=== PATIENT | female | born 1995 | race Caucasian/White ===

== ENCOUNTER 2023-07-23 17:07 | Emergency (ER) | payer OTHER, SELFPAY ==
[2023-07-23 17:11] VITALS: BP 145/81
[2023-07-23] MEDS: ZOFRAN ODT (ORALLY DISINTEGRATING) 4 MG PO (17:17)
[2023-07-23] MEDS: TYLENOL 1000 MG PO (17:28)
[2023-07-23 17:51] LABS: COVID-19 Antigen Positive (Negative)
[2023-07-23 17:53] LABS: HCG, Serum Qualitative Screen Negative
[2023-07-23 17:54] LABS: % Basophils 0.9 % (0-2); % Immature Granulocytes 0.5 % (0-0.5); % Lymphocytes 9.6 % (20.5-51.1); % Monocytes 4.6 % (1.7-9.3); % Neutrophils 82.4 % (42.2-75.2); Absolute Basophils 0.1 10^3/uL (0-0.2); Absolute Eosinophils 0.2 10^3/uL (0-0.7); Absolute Lymphocytes 0.7 10^3/uL (1.2-3.4); Absolute Monocytes 0.4 10^3/uL (0.1-0.6); Absolute Neutrophils 6.2 10^3/uL (1.4-6.5); Hematocrit 36.2 % (37.0-47.0); Hemoglobin 12.1 g/dL (12.0-16.0); Mean Corp Hgb Conc. 33.4 g/dL (33.0-37.0); Mean Corpuscular Hgb 29.4 pg (27.0-31.0); Mean Corpuscular Volume 87.9 fL (81.0-99.0); Mean Platelet Volume 13.9 fL (7.4-10.4); Nucleated Red Blood Cells % 0 %; Platelet Count 173 10^3/uL (130-400); Red Blood Cell Count 4.12 10^6/uL (4.20-5.40); Red Cell Dist. Width 14.6 % (11.5-14.5); White Blood Cell Count 7.6 10^3/uL (4.8-10.8)
[2023-07-23 17:57] LABS: ALT (SGPT) 161 U/L (0-35); AST (SGOT) 379 U/L (14-36); Albumin 4.6 g/dl (3.5-5.0); Alkaline Phosphatase 138 U/L (38-126); Blood Urea Nitrogen 8 mg/dl (7-17); Calcium 10.1 mg/dl (8.4-10.2); Carbon Dioxide 24 mmol/L (22-30); Chloride 99 mmol/L (98-107); Glucose 123 mg/dl (70-99); Potassium 4.2 mmol/L (3.5-5.1); Sodium 134 mmol/L (135-145); Total Bilirubin 0.7 mg/dl (0.2-1.3); Total Protein 8.1 g/dl (6.3-8.2); eGFR > 60.00
[2023-07-23] MEDS: TORADOL 30 MG IV (18:39)
[2023-07-23] MEDS: ZOFRAN 4 MG IV (18:40)
[2023-07-23] MEDS: NSS 1000 IV (18:40)
[2023-07-23 18:44] VITALS: BP 119/69
[2023-07-23 18:47] VITALS: BMI 39.6
--- NOTE | 2023-07-23 19:37 | ED.GENMED ---
History of Present Illness
General
Chief Complaint: Abdominal Symptoms
Source: patient
Time Seen by Provider: 07/23/23 18:21
Travel History
Have you had any contact with someone who has COVID-19?: No
Do you have any symptoms of coronavirus? Fever > 100 degrees, chills, cough, shortness of breath, sore throat, loss of taste or smell, muscle aches, or headache?: No
History of Present Illness
History of Present Illness:
27-year-old female presenting to the emergency department for evaluation of nausea, vomiting, decreased p.o. intake, diarrhea, nasal congestion, sore throat and cough. She also admits to a fever but unsure of her max temperature. No known sick
contacts, recent travel or recent antibiotics. Did not take anything for symptoms prior to arrival. She denies any other concerns. Patient notes that she has not been vaccinated for COVID in the past nor has had previous COVID infection.
Past History
Past History
ED Past Medical History: HTN
ED Past Surgical History: None
Patient has exhibited threatening behavior?: No
Social History
Tobacco: Smoker
Alcohol: Occasional
Drug: None
Personal: Single
Living: with family
Employment: Employed
Review of Systems
Review of Systems
All Other Systems: ROS reviewed and negative except as documented in HPI and ROS
Phy Exam
Physical Exam
Physical Exam:
GENERAL: Alert , in no apparent distress
EYE: conjunctiva clear
Head: Normocephalic atraumatic
NECK: Supple,
ENT: mmm.
LUNGS: no acute respiratory distress
NEUROLOGICAL: Alert and oriented
SKIN: Warm and dry, skin intact.
MUSCULOSKELETAL: well perfused.
PSYCH: Normal and appropriate interaction.
Scores
Heart Failure Risk
Heart Failure Risk Score: Not Applicable
Heart Score for Chest Pain Patients
STEMI patient?: Not applicable
Withdrawal Assessment of Alcohol
Withdrawal Assessment Completed?: Not applicable
Course
Orders/Labs/Results
Orders:
Orders
07/23/23 17:15
Test Result ONCE
07/23/23 17:16
Ondansetron Orally Disint [Zofran Odt (Orally Disintegrating)] 4 mg .ROUTE .STK-MED ONE
Ondansetron Orally Disint [Zofran Odt (Orally Disintegrating)] 4 mg PO NOW STA
07/23/23 17:26
Acetaminophen [Tylenol] 1,000 mg .ROUTE .STK-MED ONE
07/23/23 17:27
Acetaminophen [Tylenol] 1,000 mg PO NOW STA
07/23/23 17:30
Complete Blood Count/With Diff Urgent
Comprehensive Metabolic Panel Urgent
HCG, Serum Qualitative Screen Urgent
07/23/23 17:31
COVID-19 Antigen Urgent
Source: Nasal Swab
Influenza A+B Rapid Molecular Urgent
DANIELLE Source: Nasal Swab
Specimen Description:
07/23/23 18:29
0.9% Sodium Chloride 1000 ml [Nss] 1,000 ml IV BOLUS
Ketorolac [Toradol] 30 mg IV NOW STA
Ondansetron Injectable [Zofran] 4 mg IV NOW STA
Abnormal Lab Results
07/23/23 07/23/23
17:30 17:31
RBC 4.12 L 10^6/uL
(4.20-5.40)
Hct 36.2 L %
(37.0-47.0)
RDW 14.6 H %
(11.5-14.5)
MPV 13.9 H fL
(7.4-10.4)
Absolute Lymphs (auto) 0.7 L 10^3/uL
(1.2-3.4)
Neutrophils % 82.4 H %
(42.2-75.2)
Lymphocytes % 9.6 L %
(20.5-51.1)
Sodium 134 L mmol/L
(135-145)
Glucose 123 H mg/dl
(70-99)
AST 379 H U/L
(14-36)
ALT 161 H U/L
(0-35)
Alkaline Phosphatase 138 H U/L
(38-126)
SARS-CoV-2 Antigen Positive A
(Negative)
07/23/23 17:30
07/23/23 17:30
Vital Signs
Initial and Last Documented VS:
Initial Vital Signs
Temp Pulse Resp BP Pulse Ox
101.5 F H 110 16 145/81 95
07/23/23 17:11 07/23/23 17:11 07/23/23 17:11 07/23/23 17:11 07/23/23 17:11
Last Documented Vital Signs
Temp Pulse Resp BP Pulse Ox
101.5 F H 96 16 119/69 98
07/23/23 18:44 07/23/23 18:44 07/23/23 18:44 07/23/23 18:44 07/23/23 18:44
MDM/Problems Addressed
Differential Diagnosis Includes:
COVID, flu, gastroenteritis
MDM/Problems Addressed:
27-year-old female presenting emergency department for evaluation of multiple URI-like symptoms combined with GI symptoms. Patient had labs, COVID and flu testing ordered while in triage and COVID test came back positive. Patient had a fever here
and was treated with Tylenol while in triage. Given her GI symptoms will treat with fluids, Zofran and Toradol. Patient will be dispositioned home following. We did discuss Paxlovid and patient noted she will think about if she wants the
medication or not.
*Pulse Oximetry
Patient hypoxic: no
*Critical Care Note
Total Time (30-74mins, 75-104mins- exclusive of procedures): Not Applicable
Patient Management
Escalation/DeEscalation of care consider admission/obs:
Patient feeling improved with medications. She is otherwise stable for discharge home. She was advised on her elevated liver function tests and to follow-up with her primary care physician over this. I suspect these were more elevated today based
off of her current COVID infection as well as her nausea and vomiting. Patient is aware of return precautions but otherwise stable for discharge home. Patient was provided with a prescription for Paxlovid but she states she is not sure she is at
this. Advise she needs to take this within the next 48 hours given her symptoms that been ongoing for the last 3 days. Also given a prescription for Zofran to use for her nausea/vomiting as needed.
ED Attending Note
-
Portions of this chart may have been created with voice recognition software.� Occasional wrong word or��sound alike� substitutions may have occurred due to the inherent limitations of voice recognition software.
Discharge Plan
Departure
Patient Disposition: Home (Routine Discharge)
Date of Disposition: 07/23/23
Time of Disposition: 19:39
Patient with high blood pressure during this ER visit?: Yes
Discharge Problem:
COVID-19, Elevated liver function tests
Instructions: COVID-19 ED
Prescriptions:
New
Paxlovid 300 mg (150 mg x 2)-100 mg tablets,dose pack
See Rx Instructions .ROUTE .COMPLEX Qty: 30 0RF
Rx Instructions:
take TWO 150 mg tablets of nirmatrelvir with ONE 100 mg tablet of ritonavir twice daily for 5 days
ondansetron 4 mg tablet,disintegrating
4 mg PO TIDPRN PRN (Reason: nausea/vomiting) Qty: 10 0RF
No Action
gabapentin 400 mg Capsule
200 mg PO TID
amlodipine 2.5 mg Tablet
2.5 mg PO DAILY
desvenlafaxine succinate [Pristiq] 50 mg Tablet Extended Release 24 Hr
50 mg PO DAILY
methylprednisolone [Medrol ([place])] 4 mg tablets,dose pack
See Rx Instructions .ROUTE .COMPLEX Qty: 21 0RF
Rx Instructions:
orally per package directions
cyclobenzaprine 10 mg tablet
10 mg PO Q8H PRN (Reason: muscle spasm) Qty: 10 0RF
ondansetron 4 mg Tablet,Disintegrating
4 mg PO TIDPRN PRN (Reason: nausea/vomiting) Qty: 12 0RF
ibuprofen 600 mg tablet
600 mg PO QID PRN (Reason: Pain) Qty: 30 0RF
ondansetron 4 mg tablet,disintegrating
4 mg PO TID PRN (Reason: nausea and vomiting) Qty: 12 0RF
Referrals:
Doe Echeverria, [Family Provider] -
Interventions
Interventions:
*Risk Screen - Suicide Last Done: 07/23/23 18:46
*General Assessment Last Done: 07/23/23 18:46
*Neglect/Abuse Screening Last Done: 07/23/23 18:46
ED- Fall Risk Assessment Last Done: 07/23/23 18:52
*ED COVID-19 Vaccine History Last Done: 07/23/23 17:11
*Nursing Disposition Last Done: 07/23/23 20:27
AK-Jebacp-Dsfsiwjhzx Assessment Last Done: 07/23/23 18:47
Discharge Date and Time
Print Language: CENTRAL AFRICAN
[2023-07-23 20:27] VITALS: BP 130/68
== END 2023-07-23 20:28 | disposition home or self-care (01) ==
LOC: EMR 17:07
PROVIDERS: EMERGENCY PHYSICIAN Emergency Medicine; FAMILY PHYSICIAN Family Medicine
DX: U07.1 COVID-19 (principal); I10 Essential (primary) hypertension; F17.200 Nicotine dependence, unspecified, uncomplicated; R79.89 Other specified abnormal findings of blood chemistry
CPT/HCPCS: 99284; 96374; 96375 ×2; 96361; 80053; 84703; 85025; 87502; 87811

== ENCOUNTER 2023-07-27 22:29 | Emergency (ER) | payer OTHER, SELFPAY ==
[2023-07-27 22:30] VITALS: BP 162/104
[2023-07-27 23:34] VITALS: BMI 38.9
[2023-07-27 23:41] VITALS: BP 102/61
[2023-07-27 23:47] LABS: % Basophils 0.6 % (0-2); % Eosinophils 2.6 % (0-6); % Immature Granulocytes 0.3 % (0-0.5); % Lymphocytes 35.9 % (20.5-51.1); % Monocytes 3.7 % (1.7-9.3); % Neutrophils 56.9 % (42.2-75.2); Absolute Basophils 0.1 10^3/uL (0-0.2); Absolute Eosinophils 0.2 10^3/uL (0-0.7); Absolute Lymphocytes 3.2 10^3/uL (1.2-3.4); Absolute Monocytes 0.3 10^3/uL (0.1-0.6); Hematocrit 35.9 % (37.0-47.0); Hemoglobin 12.2 g/dL (12.0-16.0); Mean Corpuscular Hgb 29.5 pg (27.0-31.0); Mean Corpuscular Volume 86.7 fL (81.0-99.0); Mean Platelet Volume 12.7 fL (7.4-10.4); Nucleated Red Blood Cells % 0 %; Platelet Count 174 10^3/uL (130-400); Red Blood Cell Count 4.14 10^6/uL (4.20-5.40); Red Cell Dist. Width 14.6 % (11.5-14.5); White Blood Cell Count 8.9 10^3/uL (4.8-10.8)
[2023-07-27] MEDS: DUONEB 3 ML INH (23:52)
[2023-07-27 23:57] LABS: ALT (SGPT) 122 U/L (0-35); AST (SGOT) 162 U/L (14-36); Albumin 4.3 g/dl (3.5-5.0); Alkaline Phosphatase 137 U/L (38-126); Blood Urea Nitrogen 7 mg/dl (7-17); Calcium 9.3 mg/dl (8.4-10.2); Carbon Dioxide 26 mmol/L (22-30); Chloride 103 mmol/L (98-107); Estimated Creatinine Clearance > 125 ml/min; Glucose 101 mg/dl (70-99); Sodium 137 mmol/L (135-145); Total Bilirubin 0.4 mg/dl (0.2-1.3); Total Protein 7.7 g/dl (6.3-8.2); eGFR > 60.00
[2023-07-28] VITALS: BP 113/76
[2023-07-28] LABS: D-Dimer 0.32 ug/mlFEU (0.00-0.50)
--- NOTE | 2023-07-28 00:01 | ED.GENMED ---
History of Present Illness
General
Chief Complaint: Breathing Problem
Source: patient
Exam Limitations: none
Time Seen by Provider: 07/27/23 23:05
Nursing documentation reviewed up to this point in time: agreed with
Travel History
Have you had any contact with someone who has COVID-19?: Yes
Comment: + COVID on Sunday
Do you have any symptoms of coronavirus? Fever > 100 degrees, chills, cough, shortness of breath, sore throat, loss of taste or smell, muscle aches, or headache?: Yes
Symptoms:: cough, SOB
History of Present Illness
History of Present Illness:
27-year-old female with a past medical history of hypertension who presents to the emergency department for evaluation of cough and shortness of breath. Patient notably had recent diagnosis of COVID. She says that she started feeling ill about a
week ago. She says she started with nausea and vomiting, diarrhea, sore throat and cough. She was seen in this ER 07/23/2023 (5 days ago) and was diagnosed with COVID. She was started on Paxlovid (she has 1 more day of the prescription) and was
given Zofran to use as needed for nausea. She says that her nausea, vomiting, diarrhea have all improved but she has had persistent sore throat and cough and over the past 48 hours has noticed increasing shortness of breath. She says shortness of
breath seems to be worse with lying flat. She decided to come to the emergency to be reassessed. She has not had any fevers. She denies any swelling or pain in the legs. She denies any chest pain associate with her shortness of breath. She
denies any other complaints today.
Past History
Past History
ED Past Medical History: HTN
ED Past Surgical History: None
Patient has exhibited threatening behavior?: No
Social History
Tobacco: Smoker
Alcohol: Occasional
Drug: None
Personal: Single
Living: with family
Employment: Employed
Review of Systems
Review of Systems
All Other Systems: ROS reviewed and negative except as documented in HPI and ROS
Constitutional: Denies fever or chills
EENT: Reports sore throat; Denies runny nose
Respiratory: Reports cough and trouble breathing
Cardiac: Denies chest pain or palpitations
ABD/GI: Denies abdominal pain, nausea, vomiting or diarrhea
: Denies flank pain
Musculoskeletal: Denies edema, neck pain or back pain
Skin: Denies rash
Neurological: Denies dizzy or headache
Phy Exam
Physical Exam
Physical Exam:
General: Awake, alert, oriented x3; no acute distress
Head: Normocephalic, atraumatic
Eyes: Conjunctiva normal
Throat: Airway intact, handling secretions; some slight erythema of the posterior oropharynx/tonsils but no tonsillar enlargement or exudate, midline uvula without deviation, no tongue elevation or swelling
Neck: Trachea midline, supple without meningismus
Lungs: Faint scattered wheezing; normal pulse ox on room air, normal respiratory rate, normal work of breathing
Heart: Regular rate and rhythm, no murmurs, gallops, or rubs
Abd: Soft, non distended, nontender
Neuro: Cranial nerves grossly intact, speech fluid
Skin: no rash
Extremities: No edema in extremities, equal pulses in all extremities
Scores
Heart Failure Risk
Heart Failure Risk Score: Not Applicable
Heart Score for Chest Pain Patients
STEMI patient?: Not applicable
Withdrawal Assessment of Alcohol
Withdrawal Assessment Completed?: Not applicable
Course
Orders/Labs/Results
Orders:
Orders
07/27/23 22:33
EKG [Electrocardiogram (*1)] Urgent
Reason for Study: Shortness of Breath
07/27/23 22:34
EKG- Treatment ONCE
07/27/23 23:06
Electrocardiogram (*1) Urgent
Reason for Study: Shortness of Breath
CR Chest - 2 Views Urgent
Comment:
Reason For Exam: sob
07/27/23 23:27
Complete Blood Count/With Diff Urgent
Comprehensive Metabolic Panel Urgent
D-Dimer Urgent
Troponin I Urgent
07/27/23 23:44
Ipratropium/Albuterol Sulfate [Duoneb] 3 ml INH R NOW STA
07/28/23 00:09
Azithromycin [Zithromax] 500 mg PO NOW STA
MethylPREDNISolone PF [Solu-Medrol Pf] 125 mg IV NOW STA
Abnormal Lab Results
07/27/23
23:27
RBC 4.14 L 10^6/uL
(4.20-5.40)
Hct 35.9 L %
(37.0-47.0)
RDW 14.6 H %
(11.5-14.5)
MPV 12.7 H fL
(7.4-10.4)
Creatinine 0.5 L mg/dL
(0.6-1.0)
Glucose 101 H mg/dl
(70-99)
AST 162 H U/L
(14-36)
ALT 122 H U/L
(0-35)
Alkaline Phosphatase 137 H U/L
(38-126)
07/27/23 23:27
07/27/23 23:27
Vital Signs
Initial and Last Documented VS:
Initial Vital Signs
Temp Pulse Resp BP Pulse Ox
36.7 C 93 16 162/104 98
07/27/23 22:30 07/27/23 22:30 07/27/23 22:30 07/27/23 22:30 07/27/23 22:30
Last Documented Vital Signs
Temp Pulse Resp BP Pulse Ox
36.7 C 79 16 113/76 97
07/27/23 22:30 07/28/23 00:00 07/28/23 00:00 07/28/23 00:00 07/28/23 00:00
MDM/Problems Addressed
Differential Diagnosis Includes:
Pneumonia, bronchitis, pulmonary embolism somewhat less likely, myocarditis/pericarditis less likely without chest pain
MDM/Problems Addressed:
27-year-old female presents for evaluation of persistent cough and now developing shortness of breath in the setting of known COVID infection. She is on Paxlovid and is almost completed her course. She was hypertensive in triage but blood pressure
normalized by my assessment; rest of vitals normal including a pulse ox of 98% on room air and respiratory rate of 14-16. Physical exam as above�notable for faint scattered wheezing and frequent coughing. Suspect likely bronchitis. Will plan to
check basic labs, chest x-ray to rule out pneumonia. Check an EKG. Will check d-dimer. Send troponin in an abundance of caution. Will treat with a DuoNeb. Reassess after the above.
Labs reviewed: CBC unremarkable, CMP shows mild elevation of transaminases likely in the setting of known viral illness no other clinically significant abnormalities. Troponin undetectable, D-dimer negative. Chest x-ray reviewed by me shows
questionable very faint right upper lung opacity but otherwise clear. Will cover with short course of antibiotics for questionable pneumonia on chest x-ray but by history and exam this seems more consistent with acute bronchitis in the setting of
viral infection. Will plan to treat with steroid and albuterol as needed at home. There is no clear indication for admission at this point she has no signs of sepsis, normal vital signs throughout her ED visit. Stable for discharge will have her
follow-up with her primary doctor as an outpatient. She feels comfortable with this plan. I did inform her that she needs repeat blood work to recheck LFTs as an outpatient and provided her a copy of these results. Spoke about return precautions
and all questions were answered.
Chronic conditions affecting care:
Obesity
Acute Exacerbation and/or Progression of Chronic Illness:
Acutely hypertensive resolved without intervention continue to monitor but no emergent antihypertensive is indicated at present
Acute Exacerbation and/or Progression of Chronic Illness: HTN
*Radiology
Radiology exam reviewed: preliminary read by ED provider
*Pulse Oximetry
Patient hypoxic: no
*EKG
Interpreted by ED Provider?: Yes
Heart Rate: 67
Rate: normal
Rhythm: sinus
[place]: normal axis
Interval: normal interval
QRS Pattern: normal QRS
Ischemia: other (Nonspecific T wave abnormalities)
*Critical Care Note
Total Time (30-74mins, 75-104mins- exclusive of procedures): Not Applicable
Data Reviewed
Source: patient and records
ED Attending Note
-
Portions of this chart may have been created with voice recognition software.� Occasional wrong word or��sound alike� substitutions may have occurred due to the inherent limitations of voice recognition software.
Discharge Plan
Departure
Patient Disposition: Home (Routine Discharge)
Date of Disposition: 07/28/23
Time of Disposition: 00:14
Patient with high blood pressure during this ER visit?: Yes
Discharge Problem:
Acute bronchitis, COVID-19
Instructions: Acute Bronchitis, Adult (DC), COVID-19 ED
Prescriptions:
New
azithromycin [Zithromax] 250 mg tablet
250 mg PO DAILY Qty: 4 0RF
albuterol sulfate 90 mcg/actuation HFA aerosol inhaler
2 puff inhalation Q6H PRN (Reason: shortness of breath or wheezing) Qty: 6.7 0RF
methylprednisolone [Medrol ([place])] 4 mg tablets,dose pack
See Rx Instructions .ROUTE .COMPLEX Qty: 21 0RF
Rx Instructions:
for 6 days
No Action
gabapentin 400 mg Capsule
200 mg PO TID
amlodipine 2.5 mg Tablet
2.5 mg PO DAILY
desvenlafaxine succinate [Pristiq] 50 mg Tablet Extended Release 24 Hr
50 mg PO DAILY
methylprednisolone [Medrol ([place])] 4 mg tablets,dose pack
See Rx Instructions .ROUTE .COMPLEX Qty: 21 0RF
Rx Instructions:
orally per package directions
cyclobenzaprine 10 mg tablet
10 mg PO Q8H PRN (Reason: muscle spasm) Qty: 10 0RF
ondansetron 4 mg Tablet,Disintegrating
4 mg PO TIDPRN PRN (Reason: nausea/vomiting) Qty: 12 0RF
ibuprofen 600 mg tablet
600 mg PO QID PRN (Reason: Pain) Qty: 30 0RF
ondansetron 4 mg tablet,disintegrating
4 mg PO TID PRN (Reason: nausea and vomiting) Qty: 12 0RF
Paxlovid 300 mg (150 mg x 2)-100 mg tablets,dose pack
See Rx Instructions .ROUTE .COMPLEX Qty: 30 0RF
Rx Instructions:
take TWO 150 mg tablets of nirmatrelvir with ONE 100 mg tablet of ritonavir twice daily for 5 days
ondansetron 4 mg tablet,disintegrating
4 mg PO TIDPRN PRN (Reason: nausea/vomiting) Qty: 10 0RF
Referrals:
Doe Echeverria DO [Family Provider] - Call in 1-3 days for appt
Activity Restrictions/Additional Instructions:
Thank you for visiting the Emergency Department at [facility] [place].
1. Please schedule a follow up appointment as directed. Call first thing tomorrow morning to make an appointment.
2. If indicated, please take your medications as instructed and indicated on discharge paperwork.
3. If any of your symptoms do not improve, or persist, or become more severe within 6-12 hours, please return to the emergency department for further care.
4. Please return to the emergency department if you develop a headache, neck pain/stiffness, fever greater than 100.4F, chest pain, shortness of breath, persistent nausea, vomiting, slurred speech, difficulty walking, numbness/tingling, weakness,
signs of infection or any other symptoms that are worrisome to you.
Please call [phone] if you have any questions.
Interventions
Interventions:
*Risk Screen - Suicide Last Done: 07/27/23 22:30
*General Assessment Last Done: 07/27/23 22:30
*Neglect/Abuse Screening Last Done: 07/27/23 22:30
*ED COVID-19 Vaccine History Last Done: 07/27/23 23:01
ED- Cardiac Assessment Last Done: 07/27/23 23:41
ED- Pulmonary Assessment Last Done: 07/27/23 23:41
Discharge Date and Time
Print Language: [id number]
[2023-07-28 00:07] LABS: Troponin I < 0.012 ng/ml
--- NOTE | 2023-07-28 00:19 | EDRN ---
Called pharmacy for medrol PO
[2023-07-28] MEDS: MEDROL 24 MG PO (00:53)
[2023-07-28] MEDS: ZITHROMAX 500 MG PO (00:53)
[2023-07-28 00:55] VITALS: BP 105/65
== END 2023-07-28 01:05 | disposition home or self-care (01) ==
LOC: EMR 22:29
PROVIDERS: EMERGENCY PHYSICIAN Emergency Medicine; FAMILY PHYSICIAN Family Medicine
DX: U07.1 COVID-19 (principal); J20.8 Acute bronchitis due to other specified organisms; I10 Essential (primary) hypertension; F17.200 Nicotine dependence, unspecified, uncomplicated
CPT/HCPCS: 99283; 94640; 71046; 80053; 84484; 85025; 85379; 93005

== ENCOUNTER 2023-11-21 17:52 | Emergency (ER) | payer OTHER, SELFPAY ==
[2023-11-21 17:56] VITALS: BP 179/114
--- NOTE | 2023-11-21 20:00 | ED.GENMED ---
History of Present Illness
General
Chief Complaint: Numbness
Source: patient
Exam Limitations: none
Time Seen by Provider: 11/21/23 19:47
History of Present Illness
History of Present Illness:
This is a 28 year old female that comes in with c/o numbness in the left leg. States that she has numbness from her buttocks down her leg to her foot. States that it feels like you were sitting wrong. States that today her leg gave out when she was
at work and she fell. Denies any fever, chills, chest pain, SOB, abd pain, nausea, vomiting, diarrhea, headache, dizziness, urinary burning.
Past History
Past History
ED Past Medical History: HTN, Psychiatric (Anxiety, Depression) and Other (Back pain, )
ED Past Surgical History: None
Patient has exhibited threatening behavior?: No
Social History
Tobacco: Former smoker
Alcohol: None
Drug: None
Personal: Single
Living: with family
Employment: Employed
Review of Systems
Review of Systems
All Other Systems: ROS reviewed and negative except as documented in HPI and ROS
Constitutional: Reports no symptoms; Denies fever or chills
EENT: Reports no symptoms
Respiratory: Reports no symptoms; Denies cough or trouble breathing
Cardiac: Reports no symptoms; Denies chest pain
ABD/GI: Reports no symptoms; Denies abdominal pain, nausea, vomiting or diarrhea
: Reports no symptoms; Denies dysuria, frequency or urgency
Musculoskeletal: Reports no symptoms
Skin: Reports no symptoms
Neurological: Reports numbness (Tingling in the left leg from the buttocks to the foot); Denies dizzy or headache
Psychiatric: Reports no symptoms
Phy Exam
General Physical Exam
General Presentation: well appearing and no apparent distress
General age: appears stated age
General Skin: warm and dry
General Habitus: obese
General Mental: alert
General Hydration: appears well hydrated
ENT Exam
ENT Exam: TM's normal, pharynx normal and neck supple
Eye Exam
Eye Exam: EOMI
Cardiovascular Exam
Cardiovascular Exam: regular rate/rhythm, no edema, no murmur and normal peripheral pulses
Pulmonary Exam
Pulmonary Exam: lungs clear, no respiratory distress, no rales, chest non tender, no crackles, no rhonchi, no wheezing and no cough
Gastrointestinal Exam
Gastrointestinal Exam: normal bowel sounds, non tender, soft, no organomegaly, no pulsatile mass and non distended
Musculoskeletal Exam
Musculoskeletal Exam: full ROM, no edema and other (Decreased sensation left leg from foot to thigh)
Skin Exam
Skin Exam: normal color, warm/dry, no rash, no petechia and other (Decreased sensation on the left leg from the foot to the thigh. )
Psychiatric Exam
Psychiatric Exam: normal mood/affect
Course
Orders/Labs/Results
Orders:
Orders
11/21/23 18:01
EKG [Electrocardiogram (*1)] Urgent
Reason for Study: Tachycardia
EKG- Treatment ONCE
11/21/23 19:57
CT Head W/o Iv Contrast Urgent
Comment:
Reason For Exam: Numbness left leg
CT Lumbar Spine W/o Iv Contras Urgent
Comment:
Reason For Exam: Low back pain, fell today leg gave out
Test Result ONCE
11/21/23 20:07
Complete Blood Count/With Diff Urgent
Comprehensive Metabolic Panel Urgent
HCG, Serum Qualitative Screen Urgent
11/21/23 20:10
Prednisone [Deltasone] 50 mg PO NOW STA
Abnormal Lab Results
11/21/23
20:07
Hct 35.0 L %
(37.0-47.0)
MPV 13.8 H fL
(7.4-10.4)
Absolute Lymphs (auto) 3.8 H 10^3/uL
(1.2-3.4)
Sodium 134 L mmol/L
(135-145)
Carbon Dioxide 21 L mmol/L
(22-30)
Creatinine 0.4 L mg/dL
(0.6-1.0)
Glucose 267 H mg/dl
(70-99)
AST 140 H U/L
(14-36)
ALT 140 H U/L
(0-35)
Alkaline Phosphatase 138 H U/L
(38-126)
11/21/23 20:07
11/21/23 20:07
Glucose nonfasting (patient states that she eat before coming ), AST/ALT elevation (noted on prior labs), Alk phos elevation. HCG negative.
Vital Signs
Initial and Last Documented VS:
Initial Vital Signs
Temp Pulse Resp BP Pulse Ox
98.4 F 100 18 179/114 96
11/21/23 17:56 11/21/23 17:56 11/21/23 17:56 11/21/23 17:56 11/21/23 17:56
Last Documented Vital Signs
Temp Pulse Resp BP Pulse Ox
98.4 F 75 18 146/82 97
11/21/23 17:56 11/21/23 22:03 11/21/23 22:03 11/21/23 22:03 11/21/23 22:03
Cell Coverer consulted with Physician
Cell Coverer consulted with physician?: Yes
Name of Physician Consulted: DR. Huitron
MDM/Problems Addressed
Differential Diagnosis Includes:
Sciatic pain, Parasthesias
MDM/Problems Addressed:
This is a 28 year old female that comes in with c/o numbness and tingling in the left leg. States that this has been going on for a few days. States that she also has low back pain.
Will get labs, CT head and lumbar spine.
Back into see patient. Explained that her CT of the head and lumbar spine is normal. Some times we get numbness and tingling and we doen't know what it comes from. States that this may be due to Sciatic pain so will put patient on a steroid to help
decrease any inflammation. Patient to follow up with the family doctor about her elevated Liver enzymes and her blood sugar. Patient to return if this would affect any other limb
Chronic conditions affecting care: HTN
Acute Exacerbation and/or Progression of Chronic Illness: HTN
*Radiology
Radiology exam reviewed: radiology read reviewed (lumbar spine- No acute fractures. CT head-No acute intracranial abnormality noted)
*Pulse Oximetry
Patient hypoxic: no
*EKG
Interpreted by ED Provider?: Yes
Heart Rate: 92
Rate: normal
Rhythm: sinus
[place]: normal axis
Interval: normal interval
QRS Pattern: normal QRS
Ischemia: no ischemia
*Critical Care Note
Total Time (30-74mins, 75-104mins- exclusive of procedures): Not Applicable
ED Attending Note
-
Portions of this chart may have been created with voice recognition software.� Occasional wrong word or��sound alike� substitutions may have occurred due to the inherent limitations of voice recognition software.
Discharge Plan
Departure
Patient Disposition: Home (Routine Discharge)
Date of Disposition: 11/21/23
Time of Disposition: 22:23
Patient with high blood pressure during this ER visit?: Yes
Condition: Good
Covid-19: Not Applicable
Discharge Problem:
Left lumbar radiculopathy, Left leg paresthesias
Instructions: Radiculopathy (DC), Paresthesia (DC), BLOOD PRESSURE
Prescriptions:
New
prednisone 20 mg tablet
40 mg PO DAILY Qty: 6 0RF
No Action
gabapentin 400 mg Capsule
200 mg PO TID
amlodipine 2.5 mg Tablet
2.5 mg PO DAILY
desvenlafaxine succinate [Pristiq] 50 mg Tablet Extended Release 24 Hr
50 mg PO DAILY
methylprednisolone [Medrol ([place])] 4 mg tablets,dose pack
See Rx Instructions .ROUTE .COMPLEX Qty: 21 0RF
Rx Instructions:
orally per package directions
cyclobenzaprine 10 mg tablet
10 mg PO Q8H PRN (Reason: muscle spasm) Qty: 10 0RF
ondansetron 4 mg Tablet,Disintegrating
4 mg PO TIDPRN PRN (Reason: nausea/vomiting) Qty: 12 0RF
ibuprofen 600 mg tablet
600 mg PO QID PRN (Reason: Pain) Qty: 30 0RF
ondansetron 4 mg tablet,disintegrating
4 mg PO TID PRN (Reason: nausea and vomiting) Qty: 12 0RF
Paxlovid 300 mg (150 mg x 2)-100 mg tablets,dose pack
See Rx Instructions .ROUTE .COMPLEX Qty: 30 0RF
Rx Instructions:
take TWO 150 mg tablets of nirmatrelvir with ONE 100 mg tablet of ritonavir twice daily for 5 days
ondansetron 4 mg tablet,disintegrating
4 mg PO TIDPRN PRN (Reason: nausea/vomiting) Qty: 10 0RF
azithromycin [Zithromax] 250 mg tablet
250 mg PO DAILY Qty: 4 0RF
albuterol sulfate 90 mcg/actuation HFA aerosol inhaler
2 puff inhalation Q6H PRN (Reason: shortness of breath or wheezing) Qty: 6.7 0RF
methylprednisolone [Medrol ([place])] 4 mg tablets,dose pack
See Rx Instructions .ROUTE .COMPLEX Qty: 21 0RF
Rx Instructions:
for 6 days
Referrals:
Luke Griffin DO [Family Provider] - Follow up in 2-3 days
Activity Restrictions/Additional Instructions:
As discussed, your blood work shows that your liver enzymes are elevated along with your blood sugar. this will need to be further evaluated by your family doctor. Your CT of the head and the lumbar spine is normal. Please increase your water intake
to 8-8oz glasses daily. You have also had a prescription for a steroid sent to your pharmacy to help decreased any inflammation. IF YOU WOUND START WITH ANY NUMBNESS OR TINGLING IN OTHER EXTREMITAS OR YOU HAVE ANY OTHER CONCERNS PLEASE RETURN TO
THE EMERGENCY ROOM.
Interventions
Interventions:
*Risk Screen - Suicide Last Done: 11/21/23 17:56
*General Assessment Last Done: 11/21/23 17:56
*Neglect/Abuse Screening Last Done: 11/21/23 17:56
ED- Fall Risk Assessment Last Done: 11/21/23 17:56
*ED COVID-19 Vaccine History Last Done: 11/21/23 17:56
ED- Neurological Assessment Last Done: 11/21/23 21:11
Discharge Date and Time
Print Language: BULGARIAN
[2023-11-21 20:17] LABS: % Basophils 0.7 % (0-2); % Eosinophils 1.6 % (0-6); % Immature Granulocytes 0.3 % (0-0.5); % Lymphocytes 37.9 % (20.5-51.1); % Monocytes 4.2 % (1.7-9.3); % Neutrophils 55.3 % (42.2-75.2); Absolute Basophils 0.1 10^3/uL (0-0.2); Absolute Eosinophils 0.2 10^3/uL (0-0.7); Absolute Lymphocytes 3.8 10^3/uL (1.2-3.4); Absolute Monocytes 0.4 10^3/uL (0.1-0.6); Absolute Neutrophils 5.5 10^3/uL (1.4-6.5); Hemoglobin 12.3 g/dL (12.0-16.0); Mean Corp Hgb Conc. 35.1 g/dL (33.0-37.0); Mean Corpuscular Volume 82.5 fL (81.0-99.0); Nucleated Red Blood Cells % 0 %; Red Blood Cell Count 4.24 10^6/uL (4.20-5.40); Red Cell Dist. Width 13.2 % (11.5-14.5); White Blood Cell Count 9.9 10^3/uL (4.8-10.8)
[2023-11-21 20:19] LABS: Mean Platelet Volume 13.8 fL (7.4-10.4); Platelet Count 189 10^3/uL (130-400)
[2023-11-21] MEDS: DELTASONE 50 MG PO (20:20)
[2023-11-21 20:38] LABS: HCG, Serum Qualitative Screen Negative
[2023-11-21 20:43] LABS: ALT (SGPT) 140 U/L (0-35); AST (SGOT) 140 U/L (14-36); Albumin 4.5 g/dl (3.5-5.0); Alkaline Phosphatase 138 U/L (38-126); Blood Urea Nitrogen 8 mg/dl (7-17); Calcium 9.6 mg/dl (8.4-10.2); Carbon Dioxide 21 mmol/L (22-30); Chloride 100 mmol/L (98-107); Glucose 267 mg/dl (70-99); Potassium 4.1 mmol/L (3.5-5.1); Sodium 134 mmol/L (135-145); Total Bilirubin 0.4 mg/dl (0.2-1.3); Total Protein 7.3 g/dl (6.3-8.2); eGFR > 60.00
[2023-11-21 22:03] VITALS: BP 146/82
== END 2023-11-21 22:34 | disposition home or self-care (01) ==
LOC: EMR 17:52
PROVIDERS: Clinical Nurse Specialist Family Health; EMERGENCY PHYSICIAN Emergency Medicine; FAMILY PHYSICIAN Family Medicine
DX: M54.16 Radiculopathy, lumbar region (principal); R20.0 Anesthesia of skin; W19.XXXA Unspecified fall, initial encounter; I10 Essential (primary) hypertension; F41.8 Other specified anxiety disorders; Z87.891 Personal history of nicotine dependence
CPT/HCPCS: 99284; 70450; 72131; 80053; 84703; 85025; 93005

== ENCOUNTER 2023-12-12 12:39 | Inpatient (IN) | payer OTHER, SELFPAY ==
[2023-12-12] VITALS (36 sets, daily range): BP systolic 129–172; BP diastolic 71–116; BMI 34.2; BMI 34.1
--- NOTE | 2023-12-12 10:20 | ED.GENMED ---
History of Present Illness
General
Chief Complaint: Cold/Flu/URI Symptoms
Source: patient
Exam Limitations: none
Time Seen by Provider: 12/12/23 09:50
Nursing documentation reviewed up to this point in time: agreed with
History of Present Illness
History of Present Illness:
28 y/o F with h/o HTN, anxiety
ran out of bp meds
here with n/v/d x 4-5 days
pt started wiwth nasal congestion, sore throat, cough 2 weeks ago
initially her rhinorrhea was clear
she has been doing OTC remedies(tylenol cold and sinus;)
then she started having more congestion and mucus changed color to greenish
over the past 4-5 days she has had nausea/vomtiign/diarrhea
she has had 4-5 times a day that she vomits after eating; she also has had 6 episodes watery stool today already
it is not foul smelling
some mild epigatsric pain
no fever/chills, cp, sob, black stool, recent abx, recent travel
other family members were also sick with cold sypmtoms but are already better
covid at home neg
Past History
Past History
ED Past Medical History: HTN, Psychiatric (Anxiety, Depression) and Other (Back pain, )
ED Past Surgical History: None
Patient has exhibited threatening behavior?: No
Social History
Tobacco: Former smoker
Alcohol: None
Drug: None
Personal: Single
Living: with family
Employment: Employed
Review of Systems
Review of Systems
Allergies reviewed?: Yes
All Other Systems: Not applicable
Phy Exam
Physical Exam
Physical Exam:
GENERAL: Alert , in no apparent distress
EYE: pupils equal and reactive
NECK: Supple
ENT: b/l TM s clear, pharynx erythematous but no tonsillar hypertrophy or exudates
CARDIAC: Regular rate and rhythm, no edema
LUNGS: Clear breath sounds bilaterally, no acute respiratory distress, no wheezes/rales/rhonchi, occ cough
ABDOMEN: Soft, without focal tenderness, no r/g, no cvat, normal bowel sounds
NEUROLOGICAL: Alert and oriented, no focal neuro deficits
SKIN: Warm and dry, skin intact.
MUSCULOSKELETAL: No edema, well perfused.
PSYCH: Normal and appropriate interaction.
Course
Orders/Labs/Results
Orders:
Orders
12/12/23 10:14
0.9% Sodium Chloride 1000 ml [Nss] 1,000 ml IV BOLUS
CR Chest - 2 Views Urgent
Comment:
Reason For Exam: cough x 2 weeks, diarrhea
12/12/23 10:15
Test Result ONCE
12/12/23 10:22
Amlodipine [Norvasc] 2.5 mg PO NOW STA
Ondansetron Injectable [Zofran] 4 mg IV NOW STA
12/12/23 10:27
B-Hydroxybutyrate Urgent
Comment: ADD ON
COVID-19 Antigen Urgent
Source: Nasal Swab
Complete Blood Count/With Diff Urgent
Comprehensive Metabolic Panel Urgent
Glycohemoglobin (HgbA1c) Urgent
HCG, Serum Qualitative Screen Urgent
Lipase Urgent
12/12/23 11:14
Add On- LAB Urgent
Tests Added?: bhb, ha1c
12/12/23 11:48
Bedside Glucose- Treatment Q1H
12/12/23 12:09
Reg Insulin 100 Units/100 ml [Novolin R Insulin Infusion] 100 units in 100 ml IV NOW
12/12/23 12:11
ABG [Arterial Blood Gas] Urgent
%Oxygen/Room Air: 21
Basic Metabolic Panel Q2H
12/12/23 12:12
0.9% Sodium Chloride 1000 ml [Nss] 1,000 ml IV BOLUS
12/12/23 12:19
Admit/Transfer Patient As Directed
Co-Sign Provider:
Level of Care: Inpatient admission
Assign to:: ICU
Physician / Group: liane
Diagnosis: DKA
Reason for Hospitalization: DKA
Expected length of stay greater than two midnights?: Yes
ELOS- Estimated Length of Stay in days: 3
I certify the patient meets the requirements for IP care: Yes
PRN Pain Medication Management As Directed
May give lesser potent ordered pain med per pt: Yes
preference::
Protocol:: Medication orders for pain may be administered in a
manner that supports deferring to patient preference
when the pt is:
- Requesting an ordered lesser potent pain medication.
Least to most potent pain medications are defined
as: acetaminophen < NSAID < tramadol < opioids
(morphine, oxycodone, hydromorphone).
- Requesting a lesser dose of the same medication IF
ORDERED.
- Requesting a less intrusive route of administration
if both routes are prescribed by the provider (PO <
IV).
12/12/23 12:20
Code Status As Directed
Resuscitation Status: Full Code
12/12/23 14:00
Basic Metabolic Panel Q2H
12/12/23 16:00
Basic Metabolic Panel Q2H
Abnormal Lab Results
12/12/23 12/12/23 12/12/23
10:27 12:11 12:22
pCO2 29 L mmHg
(32-35)
HCO3 18.0 L mmol/L
(21-28)
ABG O2 Sat (Measured) 99.3 H %
(94-98)
Sodium 129 L mmol/L 134 L mmol/L
(135-145) (135-145)
Chloride 95 L mmol/L
(98-107)
Carbon Dioxide 14 L* mmol/L 16 L mmol/L
(22-30) (22-30)
Creatinine 0.4 L mg/dL 0.4 L mg/dL
(0.6-1.0) (0.6-1.0)
Glucose 462 H* mg/dl 359 H mg/dl
(70-99) (70-99)
Hemoglobin A1c 11.9 H %
(4.0-5.6)
AST 79 H U/L
(14-36)
ALT 80 H U/L
(0-35)
Alkaline Phosphatase 165 H U/L
(38-126)
B-Hydroxybutyrate 0.93 H mmol/L
(0.02-0.27)
POC Glucose 342 H mg/dl
(70-99)
12/12/23 10:27
12/12/23 12:11
Vital Signs
Initial and Last Documented VS:
Initial Vital Signs
Temp Pulse Resp BP Pulse Ox
98.4 F 115 18 172/109 97
12/12/23 09:41 12/12/23 09:41 12/12/23 09:41 12/12/23 09:41 12/12/23 09:41
Last Documented Vital Signs
Temp Pulse Resp BP Pulse Ox
98.4 F 104 12 167/98 97
12/12/23 09:41 12/12/23 12:45 12/12/23 12:45 12/12/23 12:30 12/12/23 12:45
MDM/Problems Addressed
Differential Diagnosis Includes:
sinusitis, viral infection, colitis,
MDM/Problems Addressed:
28 y/o F
overweight, htn, anxiety
2 weeks uri sxs sounding like sinusitis but then n/v/d x 5 days
has apparently had bg 11/20 that was 267 but no dx of DM; never f/u with her PCP
today tachycardic 110s, afebrile, some URI sxs
bg 462, AG 20, sodium 129, k 4.1
getting vbg, a1c , BHB now
will start insulin drip
admit for IVF resuscitation, bg control;
*Critical Care Note
Total Time (30-74mins, 75-104mins- exclusive of procedures): Not Applicable
ED Attending Note
-
Portions of this chart may have been created with voice recognition software.� Occasional wrong word or��sound alike� substitutions may have occurred due to the inherent limitations of voice recognition software.
Discharge Plan
Departure
Patient Disposition: Admit
Date of Disposition: 12/12/23
Time of Disposition: 11:49
Admit to: ICU
Presentation/result/management discussed w/ accepting MD/DO: Hospitalist
Condition: Fair
Covid-19: Not Applicable
Discharge Problem:
DKA (diabetic ketoacidosis), Sinusitis, Nausea vomiting and diarrhea
Interventions
Interventions:
*Risk Screen - Suicide Last Done: 12/12/23 09:41
*General Assessment Last Done: 12/12/23 09:41
*Neglect/Abuse Screening Last Done: 12/12/23 09:41
*ED COVID-19 Vaccine History Last Done: 12/12/23 10:44
ED- Pulmonary Assessment Last Done: 12/12/23 10:43
[2023-12-12] MEDS: NSS 1000 IV ×2 (10:27→12:52)
[2023-12-12] MEDS: ZOFRAN 4 MG IV (10:33)
[2023-12-12] MEDS: NORVASC 2.5 MG PO (10:33)
[2023-12-12 10:52] LABS: % Basophils 0.9 % (0-2); % Immature Granulocytes 0.3 % (0-0.5); % Lymphocytes 29.9 % (20.5-51.1); % Monocytes 4.3 % (1.7-9.3); % Neutrophils 63.6 % (42.2-75.2); Absolute Basophils 0.1 10^3/uL (0-0.2); Absolute Eosinophils 0.1 10^3/uL (0-0.7); Absolute Lymphocytes 2.8 10^3/uL (1.2-3.4); Absolute Monocytes 0.4 10^3/uL (0.1-0.6); Absolute Neutrophils 5.9 10^3/uL (1.4-6.5); Hematocrit 40.9 % (37.0-47.0); Hemoglobin 14.2 g/dL (12.0-16.0); Mean Corp Hgb Conc. 34.7 g/dL (33.0-37.0); Mean Corpuscular Hgb 28.3 pg (27.0-31.0); Mean Corpuscular Volume 81.5 fL (81.0-99.0); Nucleated Red Blood Cells % 0 %; Platelet Count 163 10^3/uL (130-400); Red Blood Cell Count 5.02 10^6/uL (4.20-5.40); Red Cell Dist. Width 12.7 % (11.5-14.5); White Blood Cell Count 9.3 10^3/uL (4.8-10.8)
[2023-12-12 11:02] LABS: HCG, Serum Qualitative Screen Negative
[2023-12-12 11:07] LABS: COVID-19 Antigen Negative (Negative)
[2023-12-12 11:10] LABS: ALT (SGPT) 80 U/L (0-35); AST (SGOT) 79 U/L (14-36); Albumin 4.9 g/dl (3.5-5.0); Alkaline Phosphatase 165 U/L (38-126); Blood Urea Nitrogen 11 mg/dl (7-17); Calcium 10.1 mg/dl (8.4-10.2); Carbon Dioxide 14 mmol/L (22-30); Chloride 95 mmol/L (98-107); Glucose 462 mg/dl (70-99); Lipase 80 U/L (23-300); Potassium 4.1 mmol/L (3.5-5.1); Sodium 129 mmol/L (135-145); Total Bilirubin 0.8 mg/dl (0.2-1.3); Total Protein 7.8 g/dl (6.3-8.2); eGFR > 60.00
[2023-12-12 11:52] LABS: B-Hydroxybutyrate 0.93 mmol/L (0.02-0.27)
--- NOTE | 2023-12-12 12:08 | HPS.HSE ---
Family Physician
-
Family Physician: Luke Griffin, DO
Chief Complaint
-
URI symptoms
History of Present Illness
28 y/o F with PMHx:
Obesity due to excess calories
Anxiety
Essential hypertension
who p/w CC URI sxs. Patient states she has had nasal congestion and postnasal drip as well as headache over the last 2 weeks. She did have a 5-day period of nausea vomiting and diarrhea. The diarrhea persists and she denies melena or
hematochezia. She denies any fevers, chest pain, shortness of breath. She does admit to polyuria and increased thirst. She had a blood glucose checked on November 20 that was 267. She has no history of a diagnosis of diabetes. Denies any other
acute complaints.
Medical History
Past Medical History
Past Medical History: Reports Other
Additional Past Medical History:
Obesity due to excess calories
Anxiety
Essential hypertension
Past Surgical History: Reports Other (N/A)
Social History
Tobacco: Non-smoker
Alcohol: None
Drug: None
Family History
Family History: Not pertinent
Allergies / Home Medications
Allergies reflects when Allergies were last updated in [facility].
Home Medications with original date entered in [facility]
Allergy/Medication List:
Allergies
Allergy/AdvReac Type Severity Reaction Status Date / Time
No Known Allergies Allergy Verified 12/12/23 09:41
Home Medications
amlodipine 2.5 mg tablet 2.5 mg PO DAILY blood pressure 07/20/22
desvenlafaxine succinate 50 mg tablet,extended release 24 hr (Pristiq) 50 mg PO DAILY depression/anxiety 07/20/22
gabapentin 400 mg capsule 400 mg PO TID depression/mood/pain 07/20/22
quetiapine 100 mg tablet (Seroquel) 500 mg PO HS Mental Health/Anxiety 12/12/23
Review of Systems
-
History Source: Patient
A 12 point ROS was completed and negative except as noted: Yes
Physical Exam
Vital Signs
Vital Signs
Temp Pulse Resp BP Pulse Ox
98.4 F 100 20 134/98 98
12/12/23 09:41 12/12/23 10:43 12/12/23 10:43 12/12/23 10:43 12/12/23 10:43
Physical Exam
General: Other (.)
Laboratory Results
-
12/12/23 10:27
Laboratory Results
Total Bilirubin 0.8 mg/dl (0.2-1.3) 12/12/23 10:27
AST 79 U/L (14-36) H 12/12/23 10:27
ALT 80 U/L (0-35) H 12/12/23 10:27
Alkaline Phosphatase 165 U/L (38-126) H 12/12/23 10:27
Lipase 80 U/L (23-300) 12/12/23 10:27
Impression/Plan
-
Gen: NAD, AAOx3.
Eyes: EOMI, PERRLA, no scleral icterus.
Neck: supple.
CV: RRR, +S1/S2, no m/r/g.
Resp: CTAB, no rales, wheezes, or rhonchi.
Abd: +BS, soft, NT, ND
Skin: No rashes.
Neuro: CN 2-12 intact, non-focal.
Psych: tearful
CXR: Normal
Acute diabetic ketoacidosis:
-start insulin gtt at 1U/kg/hr (10U/hr)
-aggressive IVFs. ER has ordered 1L NS, will order another 1L NS wide open.
-after NS boluses, start NS with 40meq K @ 125cc/hr (K will drop with insulin gtt)
-check formal ABG
-trend BMP Q4H
-mild transaminitis, trend with above treatment
-check a1c
URI:
-COVID NEG
-CXR clear
-supportive care
Essential HTN:
-cont Norvasc
Diarrhea:
-cont to monitor with above treatment. If no improvement will c/s GI.
Obesity due to excess calories:
-Encourage weight loss
-Affects all aspects of care
Anxiety:
-cont home Pristiq/Seroquel/Neurontin
FULL/Lovenox
Total critical care time spent = 45 min
[2023-12-12 12:27] LABS: Glucose - Point of Care 342 mg/dl (70-99)
[2023-12-12 12:32] LABS: B.E. -5.4 mmol/L; O2 Saturation % 99.3 % (94-98); PCO2 29 mmHg (32-35); PO2 90 mmHg (83-108)
[2023-12-12 12:35] LABS: Glycohemoglobin (HgbA1c) 11.9 % (4.0-5.6)
[2023-12-12 12:36] LABS: Blood Urea Nitrogen 9 mg/dl (7-17); Calcium 9.7 mg/dl (8.4-10.2); Carbon Dioxide 16 mmol/L (22-30); Chloride 100 mmol/L (98-107); Glucose 359 mg/dl (70-99); Potassium 4.2 mmol/L (3.5-5.1); Sodium 134 mmol/L (135-145); eGFR > 60.00
[2023-12-12] MEDS: NOVOLIN R INSULIN INFUSION 100 IV (12:51)
--- NOTE | 2023-12-12 13:24 | PN.DE.MGMTRT ---
Insulin Management
- -
12/12/2023 Diabetes Management Consult
Patient admitted with URI symptoms, 5 days of n/v/d. PMH HTN, anxiety, obesity. Glucose on admission 462, A1C 11.9%, GAP 20.
Patient is awake alert and oriented able to discuss diabetes management. She states 2 weeks ago was started on steroids for leg numbness.
Patient currently receiving insulin infusion, for admission. Provided diabetes education booklet and brief discussion of family history (father) and managing moving forward. Will follow for readiness to transition off of insulin infusion. Will
provide and teach glucose monitor.
Diabetes History
- -
Type of Diabetes: 2
Pre-Admission Diabetes Regimen
12/12/23 12/12/23
10: 12:11
Creatinine 0.4 L 0.4 L
Lab Results
Hemoglobin A1c 11.9 % (4.0-5.6) H 12/12/23 10:27
Insulin Pump Settings
IP Diabetes Regimen
12/12/23 12/12/23 12/12/23
10: 12:11 12:22
Glucose 462 H* 359 H
POC Glucose 342 H
Patient Education
[2023-12-12 13:26] LABS: Glucose - Point of Care 289 mg/dl (70-99)
[2023-12-12 14:07] LABS: Glucose - Point of Care 261 mg/dl (70-99)
[2023-12-12 14:39] LABS: Blood Urea Nitrogen 8 mg/dl (7-17); Calcium 9.1 mg/dl (8.4-10.2); Carbon Dioxide 16 mmol/L (22-30); Chloride 103 mmol/L (98-107); Estimated Creatinine Clearance > 125 ml/min; Glucose 285 mg/dl (70-99); Potassium 3.9 mmol/L (3.5-5.1); Sodium 135 mmol/L (135-145); eGFR > 60.00
--- NOTE | 2023-12-12 15:21 | EDRN ---
attempted to radha report to ICU, on hold for 12 minutes. Will attempt at a later time.
--- NOTE | 2023-12-12 15:30 | PTCARENOTE ---
attempted to call ER back @ [phone]; RN unavailable for report @ that time. Awaiting call back.
[2023-12-12 15:45] LABS: Glucose - Point of Care 186 mg/dl (70-99)
[2023-12-12 16:22] LABS: Blood Urea Nitrogen 6 mg/dl (7-17); Calcium 8.6 mg/dl (8.4-10.2); Carbon Dioxide 17 mmol/L (22-30); Chloride 106 mmol/L (98-107); Estimated Creatinine Clearance > 125 ml/min; Glucose 188 mg/dl (70-99); Potassium 3.7 mmol/L (3.5-5.1); Sodium 138 mmol/L (135-145); eGFR > 60.00
--- NOTE | 2023-12-12 16:33 | CON.INTV ---
Consultation
Consultation Request
Date/Time Consultation Requested: 12/12/23
Date/Time Consultation Performed: 12/12/23
Performing Provider: Liborio
Reason for Consultation: ICU
Medical History
-
History of Present Illness:
Patient is a 28 year old F wtih history of HTN, anxiety/depression presenting to ER wt URI symptoms including nasal congestion, PND, LOPEZ, with N/V/D. She noted polyuria and polydipsia. She has no known history of diabetes, but recently had a
blood glucose checked on 11/21/23 that was 267. In ER she was noted to have hyperglycemia, increased AG suspicious for DKA, she is placed on insulin gtt. Admitted to ICU for new onset diabetes in fulminant DKA.
.
Past Medical History
Past Medical History: Other (see list below)
Social History
Tobacco: Non-smoker
Alcohol: None
Drug: None
Family History
Family History: Diabetes (Father)
Allergies / Home Medications
Allergies
Allergy/AdvReac Type Severity Reaction Status Date / Time
No Known Allergies Allergy Verified 12/12/23 09:41
Home Medications
�Medication �Instructions �Recorded �Confirmed �Last Taken �Type
amlodipine 2.5 mg tablet 2.5 mg PO DAILY blood pressure 07/20/22 12/12/23 12/11/23 History
desvenlafaxine succinate 50 mg 50 mg PO DAILY depression/anxiety 07/20/22 12/12/23 12/11/23 History
tablet,extended release 24 hr
(Pristiq)
gabapentin 400 mg capsule 400 mg PO TID depression/mood/pain 07/20/22 12/12/23 12/11/23 History
quetiapine 100 mg tablet (Seroquel) 500 mg PO HS Mental Health/Anxiety 12/12/23 12/12/23 12/11/23 History
Review of Systems
-
History Source: Patient
All other systems: Negative unless noted
Vitals / Labs / Diagnostic Testing
Vital Signs
Temp Pulse Resp BP Pulse Ox
98.4 F 88 16 147/102 96
12/12/23 09:41 12/12/23 16:15 12/12/23 16:30 12/12/23 16:01 12/12/23 16:15
Lab Data
12/12/23 10:27
12/12/23 15:53
Laboratory Results
12/12/23
12:11
pH 7.40
pCO2 29 L
pO2 90
HCO3 18.0 L
O2 Delivery Level
Diagnostic Testing:
Physical Exam
-
HEENT: Normocephalic, Anicteric and Moist Mucous Membranes
Cardiovascular: S1/S2 and Regular Rhythm
Respiratory: Clear and Non-Labored Respirations
GI: Soft, Non Distended and Non Tender
Neurology: Awake, Alert, Oriented and No Motor Deficits
Skin: Warm, Dry and Good Color
General: Comfortable and Other (NAD)
Assessment
-
Patient is a 28 year old F ih history of HTN, anxiety/depression presenting to ER wt URI symptoms including nasal congestion, PND, LOPEZ, with N/V/D. She noted polyuria and polydipsia. She has no known history of diabetes, but recently had a
blood glucose checked on 11/21/23 that was 267. In ER she was noted to have hyperglycemia, increased AG suspicious for DKA, she is placed on insulin gtt. Admitted to ICU for new onset diabetes in fulminant DKA.
DKA
AGMA
Polydipsia/Polyuria
URI symptoms
N/V/D
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
History of gastric ulcer
Primary hypertension
Anxiety/depression
Former tobacco smoker 1PPD for 10+ years, quit 2 years ago
Obesity (BMI 30.0-34.9)
Dental caries
Family history of DM
Plan
DKA, admitting BS elevated, AG 20
Started on insulin drip, can wean today following protocol, start D5 IVFs
Consult diabetic nurse for insulin recommendations/education
Repeat BMP showing AG now 15
Can restart diet once able to bridge
New onset DM, never diagnosed in past
HbA1c 11.9
NPO for now
Diet transition following DKA protocol
GI ppx: if indicated
Hemodynamically stable, not requiring pressors.
No prior h/o cardiac disease
No ECHO in past
Oxygen needs: Stable on RA
No prior h/o pulmonary disease, former smoker but overall <20 years
CXR stable, no acute findings
Can add neb if needed
Creat at baseline, follow UO
Acid/base status: AGMA 2/2 DKA, follow until AG <12
No signs/symptoms suspicious for infectious etiology at this time.
Will observe off antibiotics for now.
Follow fever trend, WBC count.
DVT ppx SCDs
We will follow
Diagnostic Data
Chest X-Ray: no acute process
CT Scan:
Echo:
PFT's:
Reports and relevant images were personally reviewed.
-----
Critical Care time 50 mins -- The patient is admitted for acute critical illness for the treatment of vital organ failure and/or prevention of further life-threatening conditions. Total care includes time spent in review of history, physical exam,
medications, hemodynamic/ventilator parameters, laboratory data, imaging and discussion with house staff, pharmacy, respiratory therapy, asparagus cutter, and nursing.
[2023-12-12 17:12] LABS: Glucose - Point of Care 182 mg/dl (70-99)
[2023-12-12] MEDS: D5/0.45%NSS with KCL 20 MEQ 1000 IV ×2 (17:32→23:45)
[2023-12-12] MEDS: LOVENOX 40 MG SC (17:33)
[2023-12-12] MEDS: TYLENOL 650 MG PO ×2 (17:33→21:24)
[2023-12-12] MEDS: NEURONTIN 400 MG PO ×2 (17:33→21:23)
--- NOTE | 2023-12-12 18:00 | PTCARENOTE ---
Received pt from ED into rm [id number] @ approx 1645. Pt. stand/pivot to bed; Ox3, flat/tearful @ x's. C/O 9/10 h/a- medicated w prn Tylenol- see MAY. SR on monitor. SpO2 97% on RA. Afebrile. +BS abd soft/round/obese. NPO ex sips/meds maintained. Int
nausea; no vomiting. Stand by assisted into BR to void, gait steady. #20 AC w insulin gtt infusing on arrival; new orders received for titration protocol; blood sugars q1H maintained and gtt titrated per orders- see flow sheet. Initiated D5 /
NSS w KCL 20meq @ 150mL/hr via #20 R AC w insulin. Inserted #20 R FA, +BR, dressing applied. Pt. instructed on how to report care concerns and call crocker placed w in reach.
[2023-12-12 18:15] LABS: Glucose - Point of Care 175 mg/dl (70-99)
[2023-12-12 18:26] LABS: INR 1.07; PT 13.9 Sec (11.4-14.6)
[2023-12-12 18:27] LABS: APTT 30.7 Sec (23.4-35.0)
--- NOTE | 2023-12-12 19:30 | PTCARENOTE ---
On assessment pt AAOx3, flat/tearful, denies pain and SOB, ambulates to bathroom with standby assist, 95% RA, NPO except meds, insulin gtt and fluids infusing per order, Q1H accuchecks, call crocker in reach.
[2023-12-12 19:31] LABS: Glucose - Point of Care 211 mg/dl (70-99)
[2023-12-12 20:23] LABS: Glucose - Point of Care 195 mg/dl (70-99)
[2023-12-12 20:39] LABS: Blood Urea Nitrogen 5 mg/dl (7-17); Calcium 8.7 mg/dl (8.4-10.2); Carbon Dioxide 17 mmol/L (22-30); Chloride 106 mmol/L (98-107); Estimated Creatinine Clearance > 125 ml/min; Glucose 206 mg/dl (70-99); Potassium 3.9 mmol/L (3.5-5.1); Sodium 137 mmol/L (135-145); eGFR > 60.00
[2023-12-12 21:19] LABS: Glucose - Point of Care 199 mg/dl (70-99)
[2023-12-12] MEDS: SEROQUEL 500 MG PO (21:23)
[2023-12-12 22:21] LABS: Glucose - Point of Care 233 mg/dl (70-99)
--- NOTE | 2023-12-12 23:20 | PTCARENOTE ---
Pt very restless in bed, ST on the monitor 130s-140s, pt denies CP, FASHION COORDINATOR made aware, EKG ordered and completed, no other orders at this time.
[2023-12-12 23:22] LABS: Glucose - Point of Care 239 mg/dl (70-99)
[2023-12-13] VITALS (14 sets, daily range): BP systolic 112–142; BP diastolic 67–107; BMI 34.4
[2023-12-13 00:04] LABS: Glucose - Point of Care 228 mg/dl (70-99)
[2023-12-13 01:04] LABS: Blood Urea Nitrogen 4 mg/dl (7-17); Calcium 8.7 mg/dl (8.4-10.2); Carbon Dioxide 17 mmol/L (22-30); Chloride 108 mmol/L (98-107); Estimated Creatinine Clearance > 125 ml/min; Glucose 240 mg/dl (70-99); Potassium 3.6 mmol/L (3.5-5.1); Sodium 140 mmol/L (135-145); eGFR > 60.00
[2023-12-13 01:26] LABS: Glucose - Point of Care 248 mg/dl (70-99)
[2023-12-13 02:16] LABS: Glucose - Point of Care 246 mg/dl (70-99)
[2023-12-13 03:27] LABS: Glucose - Point of Care 269 mg/dl (70-99)
--- NOTE | 2023-12-13 03:54 | PTCARENOTE ---
no changes from prior assessment, pt appears to be asleep and resting comfortably in bed, call crocker in reach.
[2023-12-13 04:34] LABS: Glucose - Point of Care 259 mg/dl (70-99)
[2023-12-13 04:39] LABS: Hematocrit 34.9 % (37.0-47.0); Mean Corp Hgb Conc. 34.4 g/dL (33.0-37.0); Mean Corpuscular Hgb 28.6 pg (27.0-31.0); Mean Corpuscular Volume 83.1 fL (81.0-99.0); Mean Platelet Volume 14.3 fL (7.4-10.4); Platelet Count 136 10^3/uL (130-400); Red Cell Dist. Width 13.2 % (11.5-14.5); White Blood Cell Count 6.5 10^3/uL (4.8-10.8)
[2023-12-13 05:10] LABS: Blood Urea Nitrogen 3 mg/dl (7-17); Calcium 8.8 mg/dl (8.4-10.2); Carbon Dioxide 19 mmol/L (22-30); Chloride 109 mmol/L (98-107); Estimated Creatinine Clearance > 125 ml/min; Glucose 245 mg/dl (70-99); Potassium 4.5 mmol/L (3.5-5.1); Sodium 140 mmol/L (135-145); eGFR > 60.00
[2023-12-13 05:12] LABS: Glucose - Point of Care 256 mg/dl (70-99)
[2023-12-13] MEDS: D5/0.45%NSS with KCL 20 MEQ 1000 IV (06:07)
[2023-12-13 06:22] LABS: Glucose - Point of Care 267 mg/dl (70-99)
[2023-12-13 07:11] LABS: Glucose - Point of Care 239 mg/dl (70-99)
--- NOTE | 2023-12-13 07:23 | W.PN.INTV ---
Today's Communication / Plan
Recommendations
Doing well, stable overnight
Now off insulin gtt, bridged
Continue DM management/education
Transfer to floors per team
We will sign off upon transfer, please call with questions
Assessment
-
Patient is a 28 year old F wtih history of HTN, anxiety/depression presenting to ER wt URI symptoms including nasal congestion, PND, LOPEZ, with N/V/D. She noted polyuria and polydipsia. She has no known history of diabetes, but recently had a
blood glucose checked on 11/21/23 that was 267. In ER she was noted to have hyperglycemia, increased AG suspicious for DKA, she is placed on insulin gtt. Admitted to ICU for new onset diabetes in fulminant DKA.
DKA
AGMA
Polydipsia/Polyuria
URI symptoms
N/V/D
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
History of gastric ulcer
Primary hypertension
Anxiety/depression
Former tobacco smoker 1PPD for 10+ years, quit 2 years ago
Obesity (BMI 30.0-34.9)
Dental caries
Family history of DM
Plan
DKA, admitting BS elevated, AG closed
Started on insulin drip, can wean today following protocol, start D5 IVFs
Now off insulin gtt
Consult diabetic nurse for insulin recommendations/education
Repeat BMP improved
Can restart diet once able to bridge
New onset DM, never diagnosed in past
HbA1c 11.9
Diet transition following DKA protocol
GI ppx: if indicated
Bottle Filler education
Hemodynamically stable, not requiring pressors.
No prior h/o cardiac disease
No ECHO in past
Oxygen needs: Stable on RA
No prior h/o pulmonary disease, former smoker but overall <20 years
CXR stable, no acute findings
Can add neb if needed
Creat at baseline, follow UO
Acid/base status: AGMA 2/2 DKA, follow until AG <12
No signs/symptoms suspicious for infectious etiology at this time.
Will observe off antibiotics for now.
Follow fever trend, WBC count.
DVT ppx SCDs
Transfer to floors
Diagnostic Data
Chest X-Ray: no acute process
CT Scan:
Echo:
PFT's:
Reports and relevant images were personally reviewed.
-----
Critical Care time 31 mins -- The patient is admitted for acute critical illness for the treatment of vital organ failure and/or prevention of further life-threatening conditions. Total care includes time spent in review of history, physical exam,
medications, hemodynamic/ventilator parameters, laboratory data, imaging and discussion with house staff, pharmacy, respiratory therapy, accounting reconciliation clerk, and nursing.
Subjective Dataa
Subjective Data
Date of Service:
Date of Service: December 13, 2023
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
Subjective:
Doing well this AM, stable on RA
No acute events ON
Off insulin gtt
Objective Data
Data Reviewed
Vital Signs / I&O / Oxygen:
Vital Signs
Temp Pulse Resp BP Pulse Ox
97.6 F 69 16 112/80 93
12/12/23 23:58 12/13/23 06:00 12/13/23 06:00 12/13/23 06:00 12/13/23 06:00
Intake and Output
12/12/23 12/13/23 12/14/23
06:59 06:59 06:59
Intake Total 2260 / 2414 153 / 153
Balance 226 / 241 153 / 153
SaO2 93
Physical Exam
General: Comfortable and Other (NAD)
HEENT: Normocephalic, Anicteric and Moist Mucous Membranes
Cardiovascular: S1-S2 and Regular Rhythm
Respiratory: Clear and Non-Labored Respirations
GI: Soft, Non Distended and Non Tender
Neurology: Awake, Alert, Oriented, AO x 3 and No Motor Deficits
Skin: Warm, Dry and Good Color
Labs/Micro/Reports
Lab Data
12/13/23 04:16
Laboratory Results
12/12/23 12/12/23
12:11 18:05
PT 13.9
INR 1.07
APTT 30.7
pH 7.40
pCO2 29 L
pO2 90
HCO3 18.0 L
O2 Delivery Level
--- NOTE | 2023-12-13 07:43 | PN.DE.MGMTRT ---
Insulin Management
- -
12/13/2023 Diabetes Management Consult Follow up
Patient admitted with URI symptoms, 5 days of n/v/d. PMH HTN, anxiety, obesity. Glucose on admission 462, A1C 11.9%, GAP 20.
Patient is awake alert and oriented able to discuss diabetes management. She states 2 weeks ago was started on steroids for leg numbness. Prior to start of steroids glucose 267.
Patient currently receiving insulin infusion via DKA protocol. GAP @12am 15, @ 4:16AM 12, repeat BMP GAP 10. Will transition to subcutaneous insulin 15 units now and daily, then drip off 2 hours later. Will start 1600 calorie diet and test
glucose ACHS with novolog 5 units and moderate corrective insulin.
Provided diabetes education booklet and brief discussion of family history (father) and managing moving forward. Instructed patient on Contour Next glucose monitor with good return demonstration. Instructed patient to test ACHS @ home and report
to primary doctor. Instructed on insulin prep and administration with good return demonstration. Patient to self inject insulin for all injections with nursing supervision.
Discussed with nurse.
Diabetes History
- -
Type of Diabetes: 2
Pre-Admission Diabetes Regimen
12/12/23 12/12/23 12/12/23
12:11 14:01
Creatinine 0.4 L 0.4 L 0.4 L
12/12/23 12/12/23 12/13/23
15:53 20:02 00:06
Creatinine 0.3 L 0.4 L 0.4 L
12/13/23
04:16
Creatinine 0.3 L
Lab Results
Hemoglobin A1c 11.9 % (4.0-5.6) H 12/12/23 10:
Insulin Pump Settings
IP Diabetes Regimen
12/12/23 12/12/23 12/12/23
12:11 12:22
Glucose 462 H* 359 H
POC Glucose 342 H
12/12/23 12/12/23 12/12/23
13:23 14:01 14:05
Glucose 285 H
POC Glucose 289 H 261 H
12/12/23 12/12/23 12/12/23
15:43 15:53 17:00
Glucose 188 H
POC Glucose 186 H 182 H
12/12/23 12/12/23 12/12/23
18:03 19:17 20:02
Glucose 206 H
POC Glucose 175 H 211 H
12/12/23 12/12/23 12/12/23
20:11 21:08 22:08
Glucose
POC Glucose 195 H 199 H 233 H
12/12/23 12/12/23 12/13/23
23:10 23:52 00:06
Glucose 240 H
POC Glucose 239 H 228 H
12/13/23 12/13/23 12/13/23
01:13 02:05 03:14
Glucose
POC Glucose 248 H 246 H 269 H
12/13/23 12/13/23 12/13/23
04:16 04:21 05:00
Glucose 245 H
POC Glucose 259 H 256 H
12/13/23 12/13/23
06:10 07:00
Glucose
POC Glucose 267 H 239 H
Patient Education
--- NOTE | 2023-12-13 08:10 | W.PN.HOSP.TC ---
Today's Communication/Plan
-
see bold
Assessment / Plan
Assessment / Plan
Pt seen and examined with nurse Autumn Marshall present at bedside:
Gen: NAD, AAOx3.
Eyes: EOMI, PERRLA, no scleral icterus.
Neck: supple.
CV: remains RRR, +S1/S2, no m/r/g.
Resp: remains CTAB, no rales, wheezes, or rhonchi.
Abd: +BS, soft, NT, ND
Skin: No rashes.
Neuro: CN 2-12 intact, non-focal.
Psych: normal mood and affect
CXR: Normal
Acute diabetic ketoacidosis:
-a1c 11.9%, new diagnosis of diabetes mellitus
-AG closed, awaiting 0800 BMP and will then transition from insulin drip to basal bolus insulin
-change IVFs to NS @ 125cc/hr as K now 4.5 and insulin gtt will be stopping soon
Mild transaminitis:
-slightly worse from yesterday, cont to trend
-appears chronic based on review of labs
-outpt w/u
URI:
-COVID NEG
-CXR clear
-supportive care
Essential HTN:
-cont Norvasc
Diarrhea:
-resolved
Obesity due to excess calories:
-Encourage weight loss
-Affects all aspects of care
Anxiety:
-cont home Pristiq/Seroquel/Neurontin
Discussed with RN.
Discussed with Sarah Vences
FULL/Lovenox
Total time spent on today's encounter was 50 minutes which included time spent in counseling the patient/family regarding diagnosis and treatment plan as listed above, goals of care, and symptom management. Case was discussed with nursing staff,
specialists, and care coordinators/case management. All labs and imaging personally reviewed by me. Remainder the time spent in detailed review of previous records, lab data, imaging, and other medical provider documentation.
Anticipated Discharge: Within 24 hours
Subjective/Interval History
-
Date of Service: December 13, 2023
Other than feeling tired the pt does not have acute complaints.
Objective Data
-
Labs:
Laboratory Results
12/12/23 12/13/23 12/13/23
20:02 00:06 04:16
WBC 6.5
Hgb 12.0
Hct 34.9 L
Plt Count 136
Sodium 137 140 140
Potassium 3.9 3.6 4.5
Chloride 106 108 H 109 H
Carbon Dioxide 17 L 17 L 19 L
BUN 5 L 4 L 3 L
Creatinine 0.4 L 0.4 L 0.3 L
Glucose 206 H 240 H 245 H
Calcium 8.7 8.7 8.8
12/13/23 12/13/23 12/13/23
08:00 12:00 16:00
WBC
Hgb
Hct
Plt Count
Sodium Pending Pending Pending
Potassium Pending Pending Pending
Chloride Pending Pending Pending
Carbon Dioxide Pending Pending Pending
BUN Pending Pending Pending
Creatinine Pending Pending Pending
Glucose Pending Pending Pending
Calcium Pending Pending Pending
Vital Signs:
Vital Signs
Temp Pulse Resp BP Pulse Ox
97.6 F 69 16 112/80 93
12/12/23 23:58 12/13/23 06:00 12/13/23 06:00 12/13/23 06:00 12/13/23 06:00
I&O
12/12/23 12/13/23 12/14/23
06:59 06:59 06:59
Intake Total 2261 / 2414 153 / 153
Balance 2261 / 2414 153 / 153
[2023-12-13] MEDS: PRISTIQ 50 MG PO (08:14)
[2023-12-13] MEDS: NORVASC 2.5 MG PO (08:14)
[2023-12-13] MEDS: NEURONTIN 400 MG PO ×3 (08:14→21:43)
[2023-12-13 08:23] LABS: Glucose - Point of Care 252 mg/dl (70-99)
[2023-12-13 08:43] LABS: Blood Urea Nitrogen < 2 mg/dl (7-17); Calcium 8.8 mg/dl (8.4-10.2); Carbon Dioxide 19 mmol/L (22-30); Chloride 109 mmol/L (98-107); Estimated Creatinine Clearance > 125 ml/min; Glucose 251 mg/dl (70-99); Potassium 4.2 mmol/L (3.5-5.1); Sodium 138 mmol/L (135-145); eGFR > 60.00
--- NOTE | 2023-12-13 08:52 | PTCARENOTE ---
Received pt @ change of shift, Ox3, flat; denies pain. SR on monitor. SpO2 97% on RA. +BS, abd soft/obese. NPO status maintained. Cont b/b. Stand by assisted into BR to void. #20 R AC patent, dressing c/d/i and #20 R FA w D5 1/2 NSS w KCL 20meq @
150mL/hr w insulin gtt- titrated per ordered. Q1H blood sugars maintained. 0800 BMP results relayed to Dr. Leal and plan to transition off insulin gtt to SC insulin today. Pt. updated on plan of care and instructed on how to report care concerns.
Call crocker placed w in reach.
[2023-12-13 08:57] LABS: ALT (SGPT) 95 U/L (0-35); AST (SGOT) 179 U/L (14-36); Albumin 3.8 g/dl (3.5-5.0); Alkaline Phosphatase 112 U/L (38-126); Direct Bilirubin 0.2 mg/dl (0.0-0.4); Total Bilirubin 0.7 mg/dl (0.2-1.3); Total Protein 6.4 g/dl (6.3-8.2)
[2023-12-13 09:12] LABS: Glucose - Point of Care 235 mg/dl (70-99)
[2023-12-13 10:10] LABS: Glucose - Point of Care 256 mg/dl (70-99)
--- NOTE | 2023-12-13 10:20 | PTCARENOTE ---
pt.'s O2 titrated up between 6-8LMF to keep SpO2 >88%. Pt. denies SOB; objective NG noted; NRB applied for exertion. Instructed on coughing/deep breathing exercises, demonstrated understanding. Productive cough w thick/white/cagle sputum. Self
performed mouth care. Remains in chair; chair alarm active; call crocker in reach.
[2023-12-13] MEDS: GLUCOPHAGE 500 MG PO ×2 (10:42→17:09)
[2023-12-13] MEDS: LANTUS 0.15 UNITS SC (10:43)
[2023-12-13 11:13] LABS: Glucose - Point of Care 235 mg/dl (70-99)
[2023-12-13 12:12] LABS: Glucose - Point of Care 227 mg/dl (70-99)
--- NOTE | 2023-12-13 12:30 | CM ---
CM following re: discharge planning.
Reviewed pt's chart, met with pt.
Pt is a 28 year old female, admitted with primary dx of Acute diabetic ketoacidosis.
Pt reports she lives with her boyfriend and their 3 children 12, 10 and 8 year of age in a 2[address], 3 steps to enter. Pt stated her boyfriend/children's father is taking care of the children while pt is here. 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
PCP: Luke Griffin
Pharmacy: [facility]
D/C plan: home with anticipated no needs. boyfriend to transport at discharge.
CM will follow with discharge plan updates as hospitalization progresses
[2023-12-13] MEDS: NSS 1000 IV (12:48)
--- NOTE | 2023-12-13 12:50 | PTCARENOTE ---
Admin long acting insulin per orders- see MAR; insulin gtt off @ this time, 2H s/p long acting insulin admin -see flow sheet. IVF changed to NSS @125mL/hr via #20 R FA. Transferred to m/s per orders- monitor removed. Pt. self ambulates around
room as needed. Call lizzette olivares in reach.
[2023-12-13] MEDS: NOVOLOG FLEXPEN-MODERATE RESISTANCE 3 UNITS SC ×2 (13:21→18:08)
[2023-12-13] MEDS: NOVOLOG FLEXPEN 5 UNITS SC ×2 (13:21→18:08)
[2023-12-13 13:32] LABS: Glucose - Point of Care 241 mg/dl (70-99)
--- NOTE | 2023-12-13 16:00 | PTCARENOTE ---
pt. reassessed, no changes since previous assessment. Safe environment maintained.
[2023-12-13 16:44] LABS: Glucose - Point of Care 208 mg/dl (70-99)
[2023-12-13] MEDS: LOVENOX 40 MG SC (17:09)
[2023-12-13] MEDS: SEROQUEL PO (19:17)
[2023-12-13] MEDS: ROBITUSSIN 100 MG PO (21:43)
[2023-12-13] MEDS: MELATONIN 5 MG PO (21:43)
[2023-12-13 21:57] LABS: Glucose - Point of Care 224 mg/dl (70-99)
[2023-12-14 00:24] VITALS: BP 134/85
[2023-12-14 03:51] VITALS: BP 130/81
[2023-12-14] MEDS: ROBITUSSIN 100 MG PO (04:02)
[2023-12-14 04:41] LABS: % Basophils 0.8 % (0-2); % Eosinophils 2.3 % (0-6); % Immature Granulocytes 0.5 % (0-0.5); % Lymphocytes 42.1 % (20.5-51.1); % Monocytes 4.3 % (1.7-9.3); Absolute Basophils 0.1 10^3/uL (0-0.2); Absolute Eosinophils 0.2 10^3/uL (0-0.7); Absolute Lymphocytes 2.7 10^3/uL (1.2-3.4); Absolute Monocytes 0.3 10^3/uL (0.1-0.6); Absolute Neutrophils 3.3 10^3/uL (1.4-6.5); Hematocrit 35.8 % (37.0-47.0); Hemoglobin 12.3 g/dL (12.0-16.0); Mean Corp Hgb Conc. 34.4 g/dL (33.0-37.0); Mean Corpuscular Hgb 28.8 pg (27.0-31.0); Mean Corpuscular Volume 83.8 fL (81.0-99.0); Mean Platelet Volume 14.4 fL (7.4-10.4); Nucleated Red Blood Cells % 0 %; Platelet Count 146 10^3/uL (130-400); Red Blood Cell Count 4.27 10^6/uL (4.20-5.40); Red Cell Dist. Width 13.2 % (11.5-14.5); White Blood Cell Count 6.5 10^3/uL (4.8-10.8)
[2023-12-14 06:00] VITALS: BMI 34.4
[2023-12-14 06:26] LABS: Blood Urea Nitrogen 3 mg/dl (7-17); Carbon Dioxide 20 mmol/L (22-30); Chloride 104 mmol/L (98-107); Estimated Creatinine Clearance > 125 ml/min; Glucose 269 mg/dl (70-99); Potassium 4.1 mmol/L (3.5-5.1); Sodium 137 mmol/L (135-145); eGFR > 60.00
[2023-12-14 07:18] VITALS: BP 131/79
[2023-12-14 07:19] VITALS: BP 131/79
--- NOTE | 2023-12-14 07:48 | PN.DE.MGMTRT ---
Insulin Management
- -
12/14/2023 Diabetes Management F/U:
Patient admitted with URI symptoms, 5 days of n/v/d. PMH HTN, anxiety, obesity. Glucose on admission 462, A1C 11.9%, GAP 20.
She states 2 weeks ago was started on steroids for leg numbness. Prior to start of steroids glucose 267.
Was initiated on DKA protocol and transitioned off drip to SQ insulin 12/12
Patient is awake, A/O x3, sitting up in bed, offers no complaints, able to discuss diabetes management.
Received Lantus 15 prior to d/c of drip. Glucose has remained >200 since transition off drip, requiring additional 3 units of corrective insulin.
HS glucose trended up to 224 last night, fasting 269 (V) this AM.
Will increase Lantus to 18 units daily and NovoLog to 8 units AC. Cont moderate corrective insulin with meals
Will follow and make further insulin adjustments if needed
Provided followup diabetes education this morning. Reviewed instructions on Contour Next glucose monitor use at home.
Instructed patient to test ACHS @ home and report to primary doctor.
Reviewed instructions on insulin prep and administration along with treatment and management of Hypoglycemia
Patient to continue self injecting insulin for all injections with nursing supervision.
Discussed outpatient DSME Classes and encouraged pt to call office and register for class.
Discussed with nurse and Attending physician.
Diabetes History
- -
Type of Diabetes: 2 requiring insulin
Pre-Admission Diabetes Regimen
12/13/23 12/13/23 12/13/23
08:12 12:00 16:00
Creatinine 0.3 L Cancelled Cancelled
12/14/23 12/14/23
03:56 05:24
Creatinine Cancelled 0.4 L
Lab Results
Hemoglobin A1c 11.9 % (4.0-5.6) H 12/12/23 10:27
Insulin Pump Settings
IP Diabetes Regimen
12/13/23 12/13/2312/12/24
08:10 08:12 09:01
Glucose 251 H
POC Glucose 252 H 235 H
12/13/23 12/13/23 12/13/23
09:59 11:01 12:00
Glucose Cancelled
POC Glucose 256 H 235 H
12/13/23 12/13/23 12/13/23
12:01 13:21 16:00
Glucose Cancelled
POC Glucose 227 H 241 H
12/13/23 12/13/23 12/14/23
16:33 21:46 03:56
Glucose Cancelled
POC Glucose 208 H 224 H
12/14/23
05:24
Glucose 269 H
POC Glucose
Patient Education
[2023-12-14 08:19] LABS: Glucose - Point of Care 267 mg/dl (70-99)
--- NOTE | 2023-12-14 08:26 | W.PN.HOSP.TC ---
Today's Communication/Plan
-
d/c
Assessment / Plan
Assessment / Plan
Pt seen and examined with nurse Susie present at bedside:
Gen: NAD, AAOx3.
Eyes: EOMI, PERRLA, no scleral icterus.
Neck: supple.
CV: continues to remain RRR, +S1/S2, no m/r/g.
Resp: continues to remain CTAB, no rales, wheezes, or rhonchi.
Abd: +BS, soft, NT, ND
Skin: No rashes.
Neuro: continues to remain CN 2-12 intact, non-focal.
Psych: normal mood and affect
CXR: Normal
Acute diabetic ketoacidosis:
-a1c 11.9%, new diagnosis of diabetes mellitus
-was on insulin gtt, AG closed, transitioned to Lantus/premeal Novolog, adjusting daily
-was on IVFs, now off
Mild transaminitis:
-appears chronic based on review of labs
-outpt w/u
URI:
-COVID NEG
-CXR clear
-supportive care
Essential HTN:
-cont Norvasc
Diarrhea:
-resolved
Obesity due to excess calories:
-Encourage weight loss
-Affects all aspects of care
Anxiety:
-cont home Pristiq/Seroquel/Neurontin
FULL/Lovenox
Medically cleared for d/c on basal/bolus insulin.
Total time spent on d/c = 37 min. This included today's physical exam, progress note, review of laboratory and diagnostic data, preparation of discharge documents and prescriptions, and discussions about the pt's hospital course and discharge plan
with the patient and other biomedical instrument technician involved in the patient's care.
Anticipated Discharge: Today
Subjective/Interval History
-
Date of Service: December 14, 2023
No new complaints.
Objective Data
-
Labs:
Laboratory Results
12/14/23 12/14/23
03:56 05:24
WBC 6.5
Hgb 12.3
Hct 35.8 L
Plt Count 146
Sodium Cancelled 137
Potassium Cancelled 4.1
Chloride Cancelled 104
Carbon Dioxide Cancelled 20 L
BUN Cancelled 3 L
Creatinine Cancelled 0.4 L
Glucose Cancelled 269 H
Calcium Cancelled 9.0
Vital Signs:
Vital Signs
Temp Pulse Resp BP Pulse Ox
99 F 66 20 131/79 97
12/14/23 07:18 12/14/23 07:18 12/14/23 07:18 12/14/23 07:18 12/14/23 07:18
I&O
12/13/23 12/14/23 12/15/23
06:59 06:59 06:59
Intake Total 1 / 2414 1894
Balance 2261 / 2414 1894
[2023-12-14] MEDS: PRISTIQ 50 MG PO (09:03)
[2023-12-14] MEDS: GLUCOPHAGE 500 MG PO (09:03)
[2023-12-14 09:04] VITALS: BP 138/89
[2023-12-14] MEDS: NORVASC 2.5 MG PO (09:04)
[2023-12-14] MEDS: NEURONTIN 400 MG PO (09:04)
[2023-12-14] MEDS: NOVOLOG FLEXPEN-MODERATE RESISTANCE 5 UNITS SC (09:05)
[2023-12-14] MEDS: NOVOLOG FLEXPEN 8 UNITS SC ×2 (09:07→13:42)
[2023-12-14] MEDS: NOVOLOG FLEXPEN SC (09:10)
[2023-12-14] MEDS: LANTUS 0.18 UNITS SC (09:16)
[2023-12-14 09:52] LABS: ALT (SGPT) 176 U/L (0-35); AST (SGOT) 225 U/L (14-36); Albumin 3.8 g/dl (3.5-5.0); Alkaline Phosphatase 115 U/L (38-126); Total Bilirubin 0.8 mg/dl (0.2-1.3); Total Protein 6.5 g/dl (6.3-8.2)
[2023-12-14 11:33] LABS: Glucose - Point of Care 309 mg/dl (70-99)
--- NOTE | 2023-12-14 11:54 | CM ---
Addendum entered by Radha Luciano 12/14/23 12:52:
CM spoke with hospice educator re pt's insulins.
CM confirmed that per insurance, the generic insulin, Insulin Aspart is preferred and for script to be changed for pharmacy to fill.
CM confirmed both insulin meds are covered.
Original Note:
D/C order in. Pt to go home w/ insulin medication.
CM called insurance pharmacy services to lopez check insulin meds, Novolog Flexpen- 8 units and Insulin Glargine- 18 units. Per insurance, auth will be required for Novolog, however generic, Insulin Aspart, is preferred and doesn't require auth.
Both meds range from 1-$3.
CM TT nurse and Dr. Leal to adjust prescription for pharmacy to fill.
Plan: Home w/ no needs.
[2023-12-14] MEDS: NOVOLOG FLEXPEN-MODERATE RESISTANCE 7 UNITS SC (12:36)
[2023-12-14 12:38] VITALS: BP 141/95
--- NOTE | 2023-12-14 14:15 | W.DCSUMMARY ---
Discharge Summary
Discharge Data
Date of Admission: 12/12/23
Date of Discharge: 12/14/23
-
Pending Results: No
Hospital Course
Primary Diagnoses:
Diabetic ketoacidosis
Type 2 diabetes mellitus, new diagnosis
Upper respiratory infection
Secondary Diagnoses:
Mild, chronic transaminitis
Essential hypertension
Diarrhea
Obesity due to excess calories
Anxiety
Consultants:
Diabetes nurse practitioner
Imaging:
CXR: Normal
Hospital course: 28-year-old female who presented with a chief complaint of upper respiratory symptoms as outlined in the H&P done on admission. The patient was found to have a metabolic anion gap acidosis. She was hyperglycemic with a blood
glucose of 462. Hemoglobin A1c was 11.9%. The patient was diagnosed with a new diagnosis of type 2 diabetes mellitus. She was placed on an insulin drip and received aggressive IV fluids. Her anion gap closed. She was transitioned Lantus/premeal
Novolog. She was discharged in medically stable condition. Of note the patient had a mild transaminitis which is chronic based on review of labs. She will need an outpatient workup of this.
Discharge Plan
-
Patient Disposition: Home (Routine Discharge)
Discharge Diagnosis/Procedures: Diabetic ketoacidosis, new diagnosis of diabetes mellitus type II
Condition: Good
Diet: Diabetic, Carb Controlled
Activity: As tolerated
Driving Restrictions: As prior to admission
Referrals:
Luke Griffin, [Family Provider] - in less than 1 week
Prescriptions:
New
metformin 500 mg Tablet
500 mg PO BID@0800,1700 Qty: 60 0RF
Rx Instructions:
TAKE TWICE A DAY WITH MEALS
(DME) Contour Next Test Strips Strip
Qty: 200 0RF
Rx Instructions:
TESTING BLOOD SUGAR 4 TIMES A DAY
insulin aspart U-100 [Novolog FlexPen U-100 Insulin] 100 unit/mL (3 mL) Insulin Pen
8 unit SC AC Qty: 5 0RF
Rx Instructions:
TAKE 8 UNITS BEFORE EACH MEAL
insulin glargine [Lantus Solostar U-100 Insulin] 100 unit/mL (3 mL) Insulin Pen
18 unit SC HS Qty: 5 0RF
Rx Instructions:
TAKE 18 UNITS AT BEDTIME
(DME) pen needle, diabetic [BD Ultra-Fine Marla Pen Needle] 32 gauge x ' Needle
Qty: 200 0RF
Rx Instructions:
PT TAKING INSULIN 4 TIMES A DAY
(DME) lancets [Microlet Lancet] Misc
Qty: 200 0RF
Rx Instructions:
TEST BLOOD SUGAR 4 TIMES A DAY
insulin aspart U-100 100 unit/mL (3 mL) Insulin Pen
8 unit SC TID Qty: 5 0RF
Rx Instructions:
TAKE 8 UNITS BEFORE EACH MEAL
Continued
gabapentin 400 mg Capsule
400 mg PO TID
amlodipine 2.5 mg Tablet
2.5 mg PO DAILY
Patient Comments:
no pharmacy fills
desvenlafaxine succinate [Pristiq] 50 mg Tablet Extended Release 24 Hr
50 mg PO DAILY
quetiapine [Seroquel] 100 mg Tablet
500 mg PO HS
Discharge Orders:
Discharge Patient (As Directed); Ordered 12/14/23
Ordered By: Burton Leal
Discharge Date and Time
Print Language: [place]ONG K[place]
== END 2023-12-14 14:00 | disposition home or self-care (01) | DRG 639 ==
LOC: ICU 12:39
PROVIDERS: Nurse Practitioner Family; Physician Assistant; ADMITTING PHYSICIAN Internal Medicine; EMERGENCY PHYSICIAN Student in an Organized Health Care Education/Training Program; FAMILY PHYSICIAN Family Medicine; OTHER PHYSICIAN Internal Medicine
DX: E11.10 Type 2 diabetes mellitus with ketoacidosis without coma (principal); J06.9 Acute upper respiratory infection, unspecified; I10 Essential (primary) hypertension; F41.9 Anxiety disorder, unspecified; F32.A Depression, unspecified; M54.9 Dorsalgia, unspecified; R19.7 Diarrhea, unspecified; K02.9 Dental caries, unspecified; R74.01 Elevation of levels of liver transaminase levels; E66.09 Other obesity due to excess calories; R51.9 Headache, unspecified; Z68.34 Body mass index [BMI] 34.0-34.9, adult; Z87.891 Personal history of nicotine dependence; Z11.52 Encounter for screening for COVID-19; Z87.11 Personal history of peptic ulcer disease; Z83.3 Family history of diabetes mellitus
CPT/HCPCS: 36600; 71046; 80048; 80053; 82010; 82248; 82805; 82962; 83036; 83690; 84703; 85025; 85027; 85610; 85730; 87070; 87811; 93005; 96361; 96365; 96366; 96375; 99285

== ENCOUNTER 2023-12-20 20:18 | Emergency (ER) | payer OTHER, SELFPAY ==
[2023-12-20 20:19] VITALS: BMI 34.9
[2023-12-20 20:35] VITALS: BP 159/102
[2023-12-20 20:53] LABS: Glucose - Point of Care 149 mg/dl (70-99)
[2023-12-20 21:12] LABS: % Basophils 0.7 % (0-2); % Eosinophils 1.7 % (0-6); % Immature Granulocytes 0.5 % (0-0.5); % Lymphocytes 35.8 % (20.5-51.1); % Monocytes 4.1 % (1.7-9.3); % Neutrophils 57.2 % (42.2-75.2); Absolute Basophils 0.1 10^3/uL (0-0.2); Absolute Eosinophils 0.2 10^3/uL (0-0.7); Absolute Immature Granulocytes 0.1 10^3/uL (0-0.05); Absolute Lymphocytes 3.9 10^3/uL (1.2-3.4); Absolute Monocytes 0.5 10^3/uL (0.1-0.6); Absolute Neutrophils 6.2 10^3/uL (1.4-6.5); Hematocrit 36.2 % (37.0-47.0); Hemoglobin 12.6 g/dL (12.0-16.0); Mean Corp Hgb Conc. 34.8 g/dL (33.0-37.0); Mean Corpuscular Hgb 29.2 pg (27.0-31.0); Mean Corpuscular Volume 83.8 fL (81.0-99.0); Mean Platelet Volume 13.4 fL (7.4-10.4); Nucleated Red Blood Cells % 0 %; Platelet Count 198 10^3/uL (130-400); Red Blood Cell Count 4.32 10^6/uL (4.20-5.40); Red Cell Dist. Width 13.3 % (11.5-14.5); White Blood Cell Count 10.9 10^3/uL (4.8-10.8)
[2023-12-20 21:15] LABS: ALT (SGPT) 107 U/L (0-35); AST (SGOT) 104 U/L (14-36); Albumin 4.7 g/dl (3.5-5.0); Alkaline Phosphatase 128 U/L (38-126); Blood Urea Nitrogen 5 mg/dl (7-17); Carbon Dioxide 21 mmol/L (22-30); Chloride 103 mmol/L (98-107); Glucose 151 mg/dl (70-99); Potassium 3.8 mmol/L (3.5-5.1); Sodium 139 mmol/L (135-145); Total Bilirubin 0.4 mg/dl (0.2-1.3); Total Protein 7.7 g/dl (6.3-8.2); eGFR > 60.00
[2023-12-21 01:42] VITALS: BP 143/100
[2023-12-21] MEDS: TYLENOL 1000 MG PO (01:54)
--- NOTE | 2023-12-21 02:33 | ED.GENMED ---
History of Present Illness
General
Chief Complaint: Headache
Source: patient
Exam Limitations: none
Time Seen by Provider: 12/21/23 02:20
History of Present Illness
History of Present Illness:
This is a 28 year old female that comes in with c/o headache. States that she was here last week and diagnosed with Diabetes. States that she has been taking her Insulin and metformin as directed. States that the last 3 days she has a headache with
pain behind her eyes and when she tried to red she feels that her vision is blurred. States that she also as a bump on the center of her chest that she scratched and something came out. Denies any fever, chills, chest pain, SOB, abd pain, nausea,
vomiting, diarrhea, dizziness, urinary burning.
Past History
Past History
ED Past Medical History: HTN, IDDM, Psychiatric (Anxiety, Depression) and Other (Back pain, )
ED Past Surgical History: None
Patient has exhibited threatening behavior?: No
Social History
Tobacco: Former smoker
Alcohol: None
Drug: None
Personal: Single
Living: with family
Employment: Employed
Review of Systems
Review of Systems
All Other Systems: ROS reviewed and negative except as documented in HPI and ROS
Constitutional: Reports no symptoms; Denies fever or chills
EENT: Reports no symptoms
Respiratory: Reports no symptoms; Denies cough or trouble breathing
Cardiac: Reports no symptoms; Denies chest pain
ABD/GI: Reports no symptoms; Denies abdominal pain, nausea, vomiting or diarrhea
: Reports no symptoms; Denies dysuria, frequency or urgency
Musculoskeletal: Reports no symptoms
Skin: Reports no symptoms
Neurological: Reports headache; Denies dizzy
Psychiatric: Reports no symptoms
Phy Exam
General Physical Exam
General Presentation: well appearing and no apparent distress
General age: appears stated age
General Skin: warm and dry
General Habitus: normal
General Mental: alert
General Hydration: appears well hydrated
ENT Exam
ENT Exam: TM's normal, pharynx normal and neck supple
Eye Exam
Eye Exam: EOMI
Cardiovascular Exam
Cardiovascular Exam: regular rate/rhythm, no edema, no murmur and normal peripheral pulses
Pulmonary Exam
Pulmonary Exam: lungs clear, no respiratory distress, no rales, chest non tender, no crackles, no rhonchi, no wheezing and no cough
Gastrointestinal Exam
Gastrointestinal Exam: normal bowel sounds, non tender, soft, no organomegaly, no pulsatile mass and non distended
Musculoskeletal Exam
Musculoskeletal Exam: full ROM and no edema
Skin Exam
Skin Exam: normal color, warm/dry, no rash, no petechia and other (Small bump on the center of the sternum. Slight redness, negative for any drainage. )
Psychiatric Exam
Psychiatric Exam: normal mood/affect
Course
Orders/Labs/Results
Orders:
Orders
12/20/23 20:42
CT Head W/o Iv Contrast Urgent
Comment:
Reason For Exam: headache, intermittant blurry vision
12/20/23 20:49
Complete Blood Count/With Diff Urgent
Comprehensive Metabolic Panel Urgent
12/21/23 01:51
Acetaminophen [Tylenol] 1,000 mg .ROUTE .STK-MED ONE
12/21/23 01:53
Acetaminophen [Tylenol] 1,000 mg PO NOW STA
12/21/23 02:32
0.9% Sodium Chloride 1000 ml [Nss] 1,000 ml IV BOLUS
Amoxicillin 875 mg/Clav 125 mg [Augmentin 875 mg/125 mg] 1 tablet PO NOW STA
Ketorolac [Toradol] 30 mg IV NOW STA
12/21/23 02:37
Visual Acuity- Treatment ONCE
Abnormal Lab Results
12/20/23 12/20/23
20:49 20:51
WBC 10.9 H 10^3/uL
(4.8-10.8)
Hct 36.2 L %
(37.0-47.0)
MPV 13.4 H fL
(7.4-10.4)
Abs Immat Gran (auto) 0.1 H 10^3/uL
(0-0.05)
Absolute Lymphs (auto) 3.9 H 10^3/uL
(1.2-3.4)
Carbon Dioxide 21 L mmol/L
(22-30)
BUN 5 L mg/dl
(7-17)
Creatinine 0.4 L mg/dL
(0.6-1.0)
Glucose 151 H mg/dl
(70-99)
AST 104 H U/L
(14-36)
ALT 107 H U/L
(0-35)
Alkaline Phosphatase 128 H U/L
(38-126)
POC Glucose 149 H mg/dl
(70-99)
12/20/23 20:49
12/20/23 20:49
Hyperglycemia. AST/ALT elevation but greatly decreased from prior labs.
Vital Signs
Initial and Last Documented VS:
Initial Vital Signs
Temp Pulse Resp BP Pulse Ox
99.3 F 87 20 159/102 98
12/20/23 20:35 12/20/23 20:35 12/20/23 20:35 12/20/23 20:35 12/20/23 20:35
Last Documented Vital Signs
Temp Pulse Resp BP Pulse Ox
98.2 F 65 20 143/100 98
12/21/23 01:42 12/21/23 01:42 12/21/23 01:42 12/21/23 01:42 12/21/23 01:42
MDM/Problems Addressed
Differential Diagnosis Includes:
Headache, Sinusitis
MDM/Problems Addressed:
This is a 28 year old female that comes in with c/o headache for the past 3 days with some blurred vision when she tries to read. States that she was here last week and diagnosed with diabetes. States that she also has a small bump on her chest.
will check labs and get CT scan. Will give IV fluids and medication with Tylenol and Toradol for her headache pain. Will also start on antibiotics as CT shows Sinusitis. Will have patient follow up with the eye doctor for evaluation. Return with
any concerns.
Chronic conditions affecting care: DM
Acute Exacerbation and/or Progression of Chronic Illness:
NA
*Radiology
Radiology exam reviewed: radiology read reviewed (CT- There are no intracranial abnormalities. There is acute left maxillary, ethmoid and sphenoid sinusitis. )
*Pulse Oximetry
Patient hypoxic: no
*EKG
Interpreted by ED Provider?: NA
Rate: EKG- N/A
*[employer] Interpretation
Rate: [employer]- N/A
*Critical Care Note
Total Time (30-74mins, 75-104mins- exclusive of procedures): Not Applicable
ED Attending Note
-
Portions of this chart may have been created with voice recognition software.� Occasional wrong word or��sound alike� substitutions may have occurred due to the inherent limitations of voice recognition software.
Discharge Plan
Departure
Patient Disposition: Home (Routine Discharge)
Date of Disposition: 12/21/23
Time of Disposition: 03:21
Patient with high blood pressure during this ER visit?: Yes
Condition: Good
Covid-19: Not Applicable
Discharge Problem:
Sinusitis, Headache
Instructions: Headache, Adult (DC), Sinusitis, Adult ED, BLOOD PRESSURE
Prescriptions:
New
amoxicillin-pot clavulanate 875-125 mg tablet
1 tab PO BID Qty: 19 0RF
No Action
gabapentin 400 mg Capsule
400 mg PO TID
amlodipine 2.5 mg Tablet
2.5 mg PO DAILY
Patient Comments:
no pharmacy fills
desvenlafaxine succinate [Pristiq] 50 mg Tablet Extended Release 24 Hr
50 mg PO DAILY
quetiapine [Seroquel] 100 mg Tablet
500 mg PO HS
metformin 500 mg Tablet
500 mg PO BID@0800,1700 Qty: 60 0RF
Rx Instructions:
TAKE TWICE A DAY WITH MEALS
(DME) Contour Next Test Strips Strip
Qty: 200 0RF
Rx Instructions:
TESTING BLOOD SUGAR 4 TIMES A DAY
insulin aspart U-100 [Novolog FlexPen U-100 Insulin] 100 unit/mL (3 mL) Insulin Pen
8 unit SC AC Qty: 5 0RF
Rx Instructions:
TAKE 8 UNITS BEFORE EACH MEAL
insulin glargine [Lantus Solostar U-100 Insulin] 100 unit/mL (3 mL) Insulin Pen
18 unit SC HS Qty: 5 0RF
Rx Instructions:
TAKE 18 UNITS AT BEDTIME
(DME) pen needle, diabetic [BD Ultra-Fine Marla Pen Needle] 32 gauge x 5/32' Needle
Qty: 200 0RF
Rx Instructions:
PT TAKING INSULIN 4 TIMES A DAY
(DME) lancets [Microlet Lancet] Misc
Qty: 200 0RF
Rx Instructions:
TEST BLOOD SUGAR 4 TIMES A DAY
insulin aspart U-100 100 unit/mL (3 mL) Insulin Pen
8 unit SC TID Qty: 5 0RF
Rx Instructions:
TAKE 8 UNITS BEFORE EACH MEAL
Referrals:
Luke Griffin, [Family Provider] - Follow up in 2-3 days
Activity Restrictions/Additional Instructions:
As discussed, your blood work shows that your liver enzymes are elevated but they have reduced greatly. Your CT shows that you have sinusitis. You have been started on an antibiotics for this and a prescription has been sent to your Pharmacy. Please
take as directed until finished. Please follow up with your Eye doctor for further evaluation. Please also increase your Amlodipine to 5mg daily to help keep your blood pressure more controlled. Follow up with the family doctor in the next 2-3 days
for recheck. IF YOU HAVE INCREASED OR CHANGING HEADACHE PAIN, OR YOU HAVE ANY OTHER CONCERNS PLEASE RETURN TO THE EMERGENCY ROOM.
Interventions
Interventions:
*Risk Screen - Suicide Last Done: 12/20/23 20:35
*General Assessment Last Done: 12/20/23 20:35
*Neglect/Abuse Screening Last Done: 12/20/23 20:35
ED- Fall Risk Assessment Last Done: 12/20/23 20:35
*ED COVID-19 Vaccine History Last Done: 12/20/23 20:35
ED- Neurological Assessment Last Done: 12/21/23 01:42
Discharge Date and Time
Print Language: ICELANDIC
[2023-12-21] MEDS: AUGMENTIN 875 MG/125 MG 1 TABLET PO (03:08)
[2023-12-21] MEDS: NSS 1000 IV (03:08)
[2023-12-21] MEDS: TORADOL 30 MG IV (03:08)
[2023-12-21 03:13] VITALS: BP 157/91
[2023-12-21] MEDS: NORVASC 5 MG PO (03:47)
[2023-12-21 05:15] VITALS: BP 148/96
== END 2023-12-21 05:30 | disposition home or self-care (01) ==
LOC: EMR 20:18
PROVIDERS: Emergency Medicine; EMERGENCY PHYSICIAN Student in an Organized Health Care Education/Training Program; FAMILY PHYSICIAN Family Medicine
DX: J32.9 Chronic sinusitis, unspecified (principal); R51.9 Headache, unspecified; I10 Essential (primary) hypertension; Z87.891 Personal history of nicotine dependence
CPT/HCPCS: 99284; 96374; 96361; 70450; 80053; 82962; 85025

== ENCOUNTER 2024-01-27 23:05 | Emergency (ER) | payer OTHER, SELFPAY ==
[2024-01-27 23:08] VITALS: BP 146/101
[2024-01-27 23:22] LABS: Glucose - Point of Care 170 mg/dl (70-99)
--- NOTE | 2024-01-27 23:24 | ED.GENMED ---
History of Present Illness
General
Chief Complaint: Alcohol Problem
Source: patient and ambulance crew
Exam Limitations: none
Time Seen by Provider: 01/27/24 23:12
Nursing documentation reviewed up to this point in time: agreed with
History of Present Illness
History of Present Illness:
This is a 28-year-old female who was hospitalized early December for treatment of acute URI complicated by metabolic acidosis/DKA, new diagnosis of insulin requiring diabetes. Was started on Lantus as well as Premeal NovoLog and metformin. She also
has history of hypertension, depression/mood disorder.
She resides in [place]. Admits to drinking alcohol tonight and while attempting to walk home she was approached by [place] police�apparently concerned for alcohol intoxication. EMS were notified and she is brought to the ED by [facility]
EMS for evaluation.
Patient admits to drinking alcohol tonight but denies drug use, denies wanting to hurt herself, denies injury or falls. She is quite angry that she was brought to the ED and is requesting to go home.
She offers no complaints other than wanting to go home.
She admits to drinking alcohol tonight but denies daily nor even frequent alcohol use.
Past History
Past History
ED Past Medical History: HTN, IDDM, Psychiatric (Anxiety, Depression) and Other (Back pain, neuropathy)
ED Past Surgical History: None
Patient has exhibited threatening behavior?: No
Social History
Tobacco: Former smoker
Alcohol: Occasional
Drug: None
Personal: Single
Living: with family
Employment: Employed
Family History
Family History: Other (Noncontributory)
Phy Exam
Physical Exam
Physical Exam:
GENERAL: 28-year-old overweight woman appears her stated age. She is awake and alert, mildly tearful, angry but communicative. Appears in no acute distress. Speech is clear.
EYE: pupils equal and reactive. anicteric. The head is normocephalic, atraumatic.
NECK: Supple, nontender, no meningismus, no significant adenopathy.
ENT: oral mucosa is moist.
CARDIAC: Regular rate and rhythm. no murmur.
LUNGS: Clear breath sounds bilaterally, no acute respiratory distress, no wheezes/rales/rhonchi
ABDOMEN: Soft, nondistended, without focal tenderness
NEUROLOGICAL: Alert and oriented x3, no focal neuro deficits. Gait is steady.
SKIN: Warm and dry, normal color, skin intact. No rash.
MUSCULOSKELETAL: No C/C/E. peripheral pulses are full and equal b/l. No palpable tenderness.
PSYCH: Tearful, angry. Adamantly denies suicidal thoughts, denies drug use. Admits to alcohol consumption tonight but denies daily nor even frequent alcohol use.
Scores
Withdrawal Assessment of Alcohol
Withdrawal Assessment Completed?: Not applicable
Course
Orders/Labs/Results
Orders:
Abnormal Lab Results
01/27/24
23:20
POC Glucose 170 H mg/dl
(70-99)
Vital Signs
Initial and Last Documented VS:
Initial Vital Signs
Temp Pulse Resp BP Pulse Ox
97.8 F 99 20 146/101 97
01/27/24 23:08 01/27/24 23:08 01/27/24 23:08 01/27/24 23:08 01/27/24 23:08
Last Documented Vital Signs
Temp Pulse Resp BP Pulse Ox
97.8 F 99 20 146/101 97
01/27/24 23:08 01/27/24 23:08 01/27/24 23:08 01/27/24 23:08 01/27/24 23:08
MDM/Problems Addressed
Differential Diagnosis Includes:
Patient presents via EMS after found by police walking [place]; she was attempting to walk home.
Police concern for significant alcohol intoxication.
Admits to alcohol consumption tonight but continues to deny significant alcohol consumption, denies daily nor even frequent use and denies drug use.
She does have a history of diabetes, newly diagnosed with initiation of insulin early December. There is some concern for hypoglycemia thus will check Accu-Chek.
Patient refusing other care but agreeable to Accu-Chek.
There is no evidence of trauma on exam, she appears at least mildly intoxicated but remains awake and alert, oriented x 3, no focal deficits and maintains a steady unaided gait.
If Accu-Chek shows no evidence of hypoglycemia, at this point no indication for further medical evaluation and patient will be discharged to home.
As she has consumed alcohol and it is late at night, patient will need reliable transportation to home. She will not be allowed to walk home.
Will call [place] police to request assistance with transportation to home.
Chronic conditions affecting care: DM and Psychiatric illness
*Pulse Oximetry
Patient hypoxic: no
*Critical Care Note
Total Time (30-74mins, 75-104mins- exclusive of procedures): Not Applicable
Update Note
Update Note:
Accu-Chek 170
Patient continues to offer no complaints, denies pain, denies recent injury. She denies wanting to hurt herself. She does admit to frustration regarding current situation; admits that she just wants to go home.
She is ambulatory with steady unaided gait.
At this point discharge to home but I am not comfortable with patient walking home in the dark and thus will attempt to secure transportation to her home in [place].
ED Attending Note
-
Portions of this chart may have been created with voice recognition software.� Occasional wrong word or��sound alike� substitutions may have occurred due to the inherent limitations of voice recognition software.
Discharge Plan
Departure
Patient Disposition: Home (Routine Discharge)
Date of Disposition: 01/27/24
Time of Disposition: 23:26
Patient with high blood pressure during this ER visit?: No
Condition: Good
Discharge Problem:
Acute alcohol intoxication
Instructions: Alcohol Intoxication ED
Prescriptions:
No Action
gabapentin 400 mg Capsule
400 mg PO TID
amlodipine 2.5 mg Tablet
2.5 mg PO DAILY
Patient Comments:
no pharmacy fills
desvenlafaxine succinate [Pristiq] 50 mg Tablet Extended Release 24 Hr
50 mg PO DAILY
quetiapine [Seroquel] 100 mg Tablet
500 mg PO HS
metformin 500 mg Tablet
500 mg PO BID@0800,1700 Qty: 60 0RF
Rx Instructions:
TAKE TWICE A DAY WITH MEALS
(DME) Contour Next Test Strips Strip
Qty: 200 0RF
Rx Instructions:
TESTING BLOOD SUGAR 4 TIMES A DAY
insulin aspart U-100 [Novolog FlexPen U-100 Insulin] 100 unit/mL (3 mL) Insulin Pen
8 unit SC AC Qty: 5 0RF
Rx Instructions:
TAKE 8 UNITS BEFORE EACH MEAL
insulin glargine [Lantus Solostar U-100 Insulin] 100 unit/mL (3 mL) Insulin Pen
18 unit SC HS Qty: 5 0RF
Rx Instructions:
TAKE 18 UNITS AT BEDTIME
(DME) pen needle, diabetic [BD Ultra-Fine Marla Pen Needle] 32 gauge x 5/32' Needle
Qty: 200 0RF
Rx Instructions:
PT TAKING INSULIN 4 TIMES A DAY
(DME) lancets [Microlet Lancet] Misc
Qty: 200 0RF
Rx Instructions:
TEST BLOOD SUGAR 4 TIMES A DAY
insulin aspart U-100 100 unit/mL (3 mL) Insulin Pen
8 unit SC TID Qty: 5 0RF
Rx Instructions:
TAKE 8 UNITS BEFORE EACH MEAL
amoxicillin-pot clavulanate 875-125 mg tablet
1 tab PO BID Qty: 19 0RF
Referrals:
Luke Griffin, [Active] - Call in 1-3 days for appt
Interventions
Interventions:
*Risk Screen - Suicide Last Done: 01/27/24 23:08
*General Assessment Last Done: 01/27/24 23:08
*Neglect/Abuse Screening Last Done: 01/27/24 23:08
ED- Fall Risk Assessment Last Done: 01/27/24 23:08
*ED COVID-19 Vaccine History Last Done: 01/27/24 23:08
Discharge Date and Time
Print Language: ESTONIAN
--- NOTE | 2024-01-27 23:45 | EDRN ---
want [facility]. Pt does not want help with drinking. Pt wants to go home. Pt spoke with Dr. Finley.
== END 2024-01-27 23:39 | disposition home or self-care (01) ==
LOC: EMR 23:05
PROVIDERS: EMERGENCY PHYSICIAN Emergency Medicine
DX: F10.129 Alcohol abuse with intoxication, unspecified (principal); I10 Essential (primary) hypertension; E11.9 Type 2 diabetes mellitus without complications; F32.A Depression, unspecified; Z87.891 Personal history of nicotine dependence
CPT/HCPCS: 99282; 82962

== ENCOUNTER 2024-07-06 14:52 | Emergency (ER) | payer OTHER, SELFPAY ==
[2024-07-06 14:57] VITALS: BP 187/123
--- NOTE | 2024-07-06 16:49 | ED.GENMED ---
History of Present Illness
General
Chief Complaint: Breathing Problem
Source: patient
Exam Limitations: none
Time Seen by Provider: 07/06/24 16:41
Nursing documentation reviewed up to this point in time: agreed with
History of Present Illness
History of Present Illness:
28-year-old female with history of HTN, IDDM, anxiety/depression, ex smoker presents for sneezing, itchy eyes, difficulty breathing for the past 3 days since she moved into her friend's mom's house who has 3 cats. She took Benadryl with no relief
of her symptoms. She states she feels like there is something in her throat 'like a hairball.' She has not been wheezing but does not feel like she is getting enough air when she takes a deep breath.
Past History
Past History
ED Past Medical History: HTN, IDDM, Psychiatric (Anxiety, Depression) and Other (Back pain, neuropathy)
ED Past Surgical History: None
Patient has exhibited threatening behavior?: No
Social History
Tobacco: Former smoker
Alcohol: Occasional
Drug: None
Personal: Single
Living: with family
Employment: Employed
Family History
Family History: Other (Noncontributory)
Review of Systems
Review of Systems
Allergies reviewed?: Yes
All Other Systems: ROS reviewed and negative except as documented in HPI and ROS
Constitutional: Denies fever
EENT: Denies sore throat (Feels like there is a lump in her throat when she swallows)
Respiratory: Denies cough or trouble breathing (Feels like she cannot take a deep breath)
Cardiac: Denies chest pain
ABD/GI: Denies abdominal pain or nausea
Musculoskeletal: Reports no symptoms
Skin: Reports itching
Neurological: Reports no symptoms
Phy Exam
Physical Exam
Physical Exam:
GENERAL: No acute distress. A&Ox3.
CONSTITUTIONAL: Afebrile.
EYES: clear, conjunctivae normal
ENMT: moist mucus membranes, Pharynx nl
RESPIRATORY: Regular respirations, nonlabored, lungs clear.
CARDIOVASCULAR: Regular rate and rhythm, no murmurs, no rubs.
GI: Soft, nontender, normal BS
MUSCULOSKELETAL: Moves with ease. Well perfused.
SKIN: Warm, dry, pink
PSYCH: Normal mood and affect. Well kept, interactive and appropriate
NEUROLOGIC: Awake, alert and oriented. No focal neurological deficits
Course
Orders/Labs/Results
Orders:
Orders
07/06/24 16:48
Dexamethasone [Decadron] 10 mg PO NOW STA
Ipratropium/Albuterol Sulfate [Duoneb] 3 ml INH R NOW STA
Vital Signs
Initial and Last Documented VS:
Initial Vital Signs
Temp Pulse Resp BP Pulse Ox
98.3 F 107 20 187/123 98
07/06/24 14:57 07/06/24 14:57 07/06/24 14:57 07/06/24 14:57 07/06/24 14:57
Last Documented Vital Signs
Temp Pulse Resp BP Pulse Ox
98.6 F 93 20 154/108 100
07/06/24 17:58 07/06/24 17:58 07/06/24 17:58 07/06/24 17:58 07/06/24 17:58
MDM/Problems Addressed
Differential Diagnosis Includes:
Allergic reaction, allergy to environmental substance
MDM/Problems Addressed:
28-year-old female with history of HTN, IDDM, anxiety/depression, ex smoker presents for sneezing, itchy eyes, difficulty breathing for the past 3 days since she moved into her friend's mom's house who has 3 cats. She took Benadryl with no relief
of her symptoms. She states her skin is itchy and she feels like there is something in her throat 'like a hairball.' She has not been wheezing but does not feel like she is getting enough air when she takes a deep breath.
6:30 PM:
Rx for prednisone and albuterol inhaler sent to her pharmacy. Patient feeling better after mini neb and Decadron
BP 156/97
referral to [facility] given
*Critical Care Note
Total Time (30-74mins, 75-104mins- exclusive of procedures): Not Applicable
ED Attending Note
-
Portions of this chart may have been created with voice recognition software.� Occasional wrong word or��sound alike� substitutions may have occurred due to the inherent limitations of voice recognition software.
Discharge Plan
Departure
Patient Disposition: Home (Routine Discharge)
Date of Disposition: 07/06/24
Time of Disposition: 18:34
Patient with high blood pressure during this ER visit?: Yes
Condition: Good
Discharge Problem:
Allergy to environmental factors
Instructions: Environmental allergies in adults
Prescriptions:
New
albuterol sulfate 90 mcg/actuation HFA aerosol inhaler
2 puff inhalation QID PRN (Reason: shortness of breath or wheezing) Qty: 6.7 0RF
prednisone 20 mg tablet
40 mg PO DAILY Qty: 6 0RF
No Action
gabapentin 400 mg Capsule
400 mg PO TID
amlodipine 2.5 mg Tablet
2.5 mg PO DAILY
Patient Comments:
no pharmacy fills
desvenlafaxine succinate [Pristiq] 50 mg Tablet Extended Release 24 Hr
50 mg PO DAILY
quetiapine [Seroquel] 100 mg Tablet
500 mg PO HS
metformin 500 mg Tablet
500 mg PO BID@0800,1700 Qty: 60 0RF
Rx Instructions:
TAKE TWICE A DAY WITH MEALS
(DME) Contour Next Test Strips Strip
Qty: 200 0RF
Rx Instructions:
TESTING BLOOD SUGAR 4 TIMES A DAY
insulin aspart U-100 [Novolog FlexPen U-100 Insulin] 100 unit/mL (3 mL) Insulin Pen
8 unit SC AC Qty: 5 0RF
Rx Instructions:
TAKE 8 UNITS BEFORE EACH MEAL
insulin glargine [Lantus Solostar U-100 Insulin] 100 unit/mL (3 mL) Insulin Pen
18 unit SC HS Qty: 5 0RF
Rx Instructions:
TAKE 18 UNITS AT BEDTIME
(DME) pen needle, diabetic [BD Ultra-Fine Marla Pen Needle] 32 gauge x ' Needle
Qty: 200 0RF
Rx Instructions:
PT TAKING INSULIN 4 TIMES A DAY
(DME) lancets [Microlet Lancet] Misc
Qty: 200 0RF
Rx Instructions:
TEST BLOOD SUGAR 4 TIMES A DAY
insulin aspart U-100 100 unit/mL (3 mL) Insulin Pen
8 unit SC TID Qty: 5 0RF
Rx Instructions:
TAKE 8 UNITS BEFORE EACH MEAL
amoxicillin-pot clavulanate 875-125 mg tablet
1 tab PO BID Qty: 19 0RF
Referrals:
Doe Echeverria DO [Family Provider] - As needed
Yesenia Ortiz MD [Consulting Staff] - Next open appointment
Activity Restrictions/Additional Instructions:
As we discussed, try Claritin or Zyrtec for environmental allergies.
You were given a dose of steroid here today, I sent a prescription to your pharmacy for prednisone steroid to start tomorrow and take it for 3 days to see if it help
I also sent a prescription to your pharmacy for albuterol inhaler 2 puffs up to 4 times a day as needed for trouble breathing
Consider other living arrangements if you cannot tolerate living with the cats
I provided you the name of an [facility] to use if you like
Interventions
Interventions:
*Risk Screen - Suicide Last Done: 07/06/24 15:00
*General Assessment Last Done: 07/06/24 15:00
*Neglect/Abuse Screening Last Done: 07/06/24 15:00
*ED- Fall Risk Assessment Last Done: 07/06/24 17:58
*ED COVID-19 Vaccine History Last Done: 07/06/24 14:57
ED- Cardiac Assessment Last Done: 07/06/24 17:58
ED- Pulmonary Assessment Last Done: 07/06/24 17:58
Discharge Date and Time
Print Language: RUSSIAN
[2024-07-06] MEDS: DUONEB 3 ML INH (17:23)
[2024-07-06] MEDS: DECADRON 10 MG PO (17:23)
[2024-07-06 17:27] VITALS: BP 159/113
[2024-07-06 17:29] VITALS: BMI 33.1
[2024-07-06 17:52] VITALS: BP 154/108
[2024-07-06 17:58] VITALS: BP 154/108
[2024-07-06 18:00] VITALS: BP 156/97
== END 2024-07-06 19:05 | disposition home or self-care (01) ==
LOC: EMR 14:52
PROVIDERS: EMERGENCY PHYSICIAN Student in an Organized Health Care Education/Training Program; FAMILY PHYSICIAN Family Medicine
DX: J30.9 Allergic rhinitis, unspecified (principal); E11.9 Type 2 diabetes mellitus without complications; I10 Essential (primary) hypertension; Z79.4 Long term (current) use of insulin; Z87.891 Personal history of nicotine dependence
CPT/HCPCS: 94640; 99283

== ENCOUNTER 2025-02-19 01:41 | Emergency (ER) | payer OTHER, SELFPAY ==
[2025-02-19 01:45] VITALS: BP 159/110
--- NOTE | 2025-02-19 02:16 | ED.GENMED ---
History of Present Illness
General
Chief Complaint: Numbness
Source: patient, spouse, previous radiology exam (Patient shows me MRI thoracic and lumbar spine results on MyChart completed February 14. No evidence of cord abnormality. Mild DJD L5-S1 with disc bulge L5-S1 without foraminal stenosis.) and
previous hospital records (Previous ED visits. January 2024, alcohol intoxication. June 2024, allergic rhinitis-exposure to cats)
Exam Limitations: none
Time Seen by Provider: 02/19/25 02:00
Nursing documentation reviewed up to this point in time: agreed with
History of Present Illness
History of Present Illness:
HISTORY OF PRESENT ILLNESS
The patient is a 29-year-old female who presents with a two-month history of worsening pain and numbness primarily in the hands and feet. She reports that the condition makes it difficult to walk or grasp objects. The patient describes the sensation
as feeling like everything is on fire, and she finds it painful when anything touches her feet, making it hard to sleep due to the pain. The onset of symptoms was sudden and followed a fall.
She is currently under the care of a neurologist and recently completed MRI scans of her lumbar and thoracic spine, with findings of degenerative changes at L5-S1 but no significant nerve root compromise. The MRI noted cystic follicles of ovaries.
She has a scheduled follow-up with her neurologist on the of the month.
The patient has a history of IDDM dx 12/2023. Blood sugars have been fairly well controlled.
She is chronically maintained on gabapentin 400 mg TID.
Past History
Past History
ED Past Medical History: HTN, IDDM, Psychiatric (Anxiety, Depression) and Other (Back pain, neuropathy)
ED Past Surgical History: None
Patient has exhibited threatening behavior?: No
Social History
Tobacco: Former smoker
Alcohol: Occasional
Drug: None
Personal: Single
Living: with family
Employment: Employed
Family History
Family History: Other (Noncontributory)
Phy Exam
Physical Exam
Physical Exam:
GENERAL: 29-year-old female appears her stated age, awake and alert, sitting upright on stretcher. Appears in no acute distress. Easily communicative.
EYE: anicteric
NECK: Supple, nontender, no meningismus, no significant adenopathy.
ENT: oral mucosa is moist. No rhinorrhea.
CARDIAC: Regular rate and rhythm. no murmur.
LUNGS: No respiratory distress.
ABDOMEN: Soft, nondistended, without focal tenderness
NEUROLOGICAL: Alert and oriented x3, no focal neuro deficits. Gait is chang and steady.
SKIN: Warm and dry, normal color, skin intact. No rash.
MUSCULOSKELETAL: No C/C/E. peripheral pulses are full and equal b/l. No palpable tenderness.
PSYCH: Normal and appropriate interaction.
Course
Orders/Labs/Results
Orders:
Orders
02/19/25 02:15
Lorazepam [Ativan] 1 mg PO NOW STA
02/19/25 02:18
Gabapentin [Neurontin] 400 mg PO NOW STA
Vital Signs
Initial and Last Documented VS:
Initial Vital Signs
Temp Pulse BP Pulse Ox
98.2 F 109 159/110 98
02/19/25 01:45 02/19/25 01:45 02/19/25 01:45 02/19/25 01:45
Last Documented Vital Signs
Temp Pulse BP Pulse Ox
98.2 F 102 132/112 98
02/19/25 01:45 02/19/25 02:30 02/19/25 02:30 02/19/25 02:21
MDM/Problems Addressed
Differential Diagnosis Includes:
DIFFERENTIAL DIAGNOSIS
The Differential Diagnosis includes, in no particular order and is not limited to:
1. Peripheral neuropathy due to diabetes
2. Carpal tunnel syndrome
3. Lumbar radiculopathy
4. Cervical radiculopathy
5. Complex regional pain syndrome
6. Spinal cord lesion
7. Multiple sclerosis
8. Vitamin B12 deficiency
9. Autoimmune neuropathy
10. Alcohol-related neuropathy
MDM/Problems Addressed:
Chronic pain and numbness primarily in hands and feet.
Insomnia related to pain.
This appears to be an ongoing issue for more than 2 months.
Patient has previously been evaluated at a different ED and is currently following with neurology and has undergone an outpatient MRI of her thoracic and lumbar spine. Upon review of results, there is note of mild DJD L5-S1 with bulging disc but no
herniation nor nerve root compression. Otherwise normal-appearing spinal cord. Incidental note of bilateral ovarian cysts.
Patient appears to have neuropathic pain which may be related to diabetes versus other peripheral neuropathy.
She may need to undergo an EMG/nerve conduction study which could be performed by her neurologist.
I have recommended she increase gabapentin, evening dose to 800 mg. Patient does admit that her neurologist has recommended she double her Neurontin dose as well; thus far has not attempted to increase her Neurontin.
She is most concerned with ongoing pain, difficulty sleeping.
At this point, at least in the ED there is no evidence of acute, life-threatening issue.
We discussed that we generally avoid narcotics for neuropathic pain and as far as insomnia is related, recommend she follow-up with his PCP and/or neurologist to discuss medication options. For tonight I have offered a one-time dose of lorazepam to
hopefully help with sleep.
Will also give an additional dose of gabapentin 400 mg now.
Patient is already following with specialist regarding these issues. At this point no indication for blood work nor imaging.
Chronic conditions affecting care: DM and Psychiatric illness
*Pulse Oximetry
SaO2: 98
Oxygen Mode of Delivery: Room air
Patient hypoxic: no
*Critical Care Note
Total Time (30-74mins, 75-104mins- exclusive of procedures): Not Applicable
ED Attending Note
-
Portions of this chart may have been created with voice recognition software.� Occasional wrong word or��sound alike� substitutions may have occurred due to the inherent limitations of voice recognition software.
Discharge Plan
Departure
Patient Disposition: Home (Routine Discharge)
Date of Disposition: 02/19/25
Time of Disposition: 02:17
Patient with high blood pressure during this ER visit?: No
Condition: Good
Discharge Problem:
Chronic neuropathic pain
Instructions: Nerve damage caused by diabetes, Peripheral neuropathy
Prescriptions:
No Action
gabapentin 400 mg Capsule
400 mg PO TID
amlodipine 2.5 mg Tablet
2.5 mg PO DAILY
Patient Comments:
no pharmacy fills
desvenlafaxine succinate [Pristiq] 50 mg Tablet Extended Release 24 Hr
50 mg PO DAILY
quetiapine [Seroquel] 100 mg Tablet
500 mg PO HS
metformin 500 mg Tablet
500 mg PO BID@0800,1700 Qty: 60 0RF
Rx Instructions:
TAKE TWICE A DAY WITH MEALS
(DME) Contour Next Test Strips Strip
Qty: 200 0RF
Rx Instructions:
TESTING BLOOD SUGAR 4 TIMES A DAY
insulin aspart U-100 [Novolog FlexPen U-100 Insulin] 100 unit/mL (3 mL) Insulin Pen
8 unit SC AC Qty: 5 0RF
Rx Instructions:
TAKE 8 UNITS BEFORE EACH MEAL
insulin glargine [Lantus Solostar U-100 Insulin] 100 unit/mL (3 mL) Insulin Pen
18 unit SC HS Qty: 5 0RF
Rx Instructions:
TAKE 18 UNITS AT BEDTIME
(DME) pen needle, diabetic [BD Ultra-Fine Marla Pen Needle] 32 gauge x ' Needle
Qty: 200 0RF
Rx Instructions:
PT TAKING INSULIN 4 TIMES A DAY
(DME) lancets [Microlet Lancet] Misc
Qty: 200 0RF
Rx Instructions:
TEST BLOOD SUGAR 4 TIMES A DAY
insulin aspart U-100 100 unit/mL (3 mL) Insulin Pen
8 unit SC TID Qty: 5 0RF
Rx Instructions:
TAKE 8 UNITS BEFORE EACH MEAL
amoxicillin-pot clavulanate 875-125 mg tablet
1 tab PO BID Qty: 19 0RF
albuterol sulfate 90 mcg/actuation HFA aerosol inhaler
2 puff inhalation QID PRN (Reason: shortness of breath or wheezing) Qty: 6.7 0RF
prednisone 20 mg tablet
40 mg PO DAILY Qty: 6 0RF
Activity Restrictions/Additional Instructions:
I recommend you increase gabapentin at bedtime to 800 mg.
Follow-up with your primary care physician as well as neurologist for further evaluation.
Interventions
Interventions:
*Risk Screen - Suicide Last Done: 02/19/25 01:51
*General Assessment Last Done: 02/19/25 02:29
*Neglect/Abuse Screening Last Done: 02/19/25 02:29
*ED COVID-19 Vaccine History Last Done: 02/19/25 02:29
*ED Influenza Vaccine History Last Done: 02/19/25 02:29
*Nursing Disposition Last Done: 02/19/25 02:33
ED- Neurological Assessment Last Done: 02/19/25 02:32
Discharge Date and Time
Discharge Date/Time: 02/19/25 02:33
Print Language: K[place]IL[place]
[2025-02-19] MEDS: NEURONTIN 400 MG PO (02:28)
[2025-02-19] MEDS: ATIVAN 1 MG PO (02:28)
[2025-02-19 02:30] VITALS: BP 132/112
== END 2025-02-19 02:33 | disposition home or self-care (01) ==
LOC: EMR 01:41
PROVIDERS: EMERGENCY PHYSICIAN Emergency Medicine; FAMILY PHYSICIAN Family Medicine
DX: E11.40 Type 2 diabetes mellitus with diabetic neuropathy, unspecified (principal); G47.01 Insomnia due to medical condition; G89.29 Other chronic pain; I10 Essential (primary) hypertension; M47.817 Spondylosis without myelopathy or radiculopathy, lumbosacral region; Z79.899 Other long term (current) drug therapy; Z87.891 Personal history of nicotine dependence
CPT/HCPCS: 99283

== ENCOUNTER 2025-03-02 02:37 | Emergency (ER) | payer OTHER, SELFPAY ==
[2025-03-02 02:38] VITALS: BP 198/132
[2025-03-02 02:45] LABS: Glucose - Point of Care 107 mg/dl (70-99)
[2025-03-02 03:29] VITALS: BMI 22.3
[2025-03-02 03:34] VITALS: BP 171/113
[2025-03-02 03:41] LABS: Hematocrit 40.1 % (37.0-47.0); Hemoglobin 14.1 g/dL (12.0-16.0); Mean Corp Hgb Conc. 35.2 g/dL (33.0-37.0); Mean Corpuscular Volume 96.2 fL (81.0-99.0); Nucleated Red Blood Cells % 0 %; Platelet Count 283 10^3/uL (130-400); Red Cell Dist. Width 13.0 % (11.5-14.5)
[2025-03-02 03:48] LABS: ALT (SGPT) 98 U/L (0-35); AST (SGOT) 225 U/L (14-36); Albumin 5.2 g/dl (3.5-5.0); Alkaline Phosphatase 128 U/L (38-126); Blood Urea Nitrogen 5 mg/dl (7-17); Calcium 9.7 mg/dl (8.4-10.2); Carbon Dioxide 20 mmol/L (22-30); Chloride 106 mmol/L (98-107); Estimated Creatinine Clearance > 125 ml/min; Glucose 98 mg/dl (70-99); Potassium 3.2 mmol/L (3.5-5.1); Sodium 143 mmol/L (135-145); Total Protein 8.9 g/dl (6.3-8.2); eGFR > 60.00
[2025-03-02 04:01] VITALS: BP 157/111
[2025-03-02 04:11] LABS: Venous Blood Gas B.E. -1.8 mmol/L (-4 to +4); Venous Blood Gas O2 Sat % 99.1 %
[2025-03-02] MEDS: NSS 1000 IV ×2 (04:11→07:19)
[2025-03-02 05:00] VITALS: BP 156/110
[2025-03-02 05:38] LABS: HCG, Serum Qualitative Screen Negative
[2025-03-02 06:00] VITALS: BP 147/94
--- NOTE | 2025-03-02 06:57 | ED.GENMED ---
History of Present Illness
<Aparna Dalton PA-C - Last Filed: 03/02/25 10:15>
General
Chief Complaint: Blood Sugar Problem
Time Seen by Provider: 03/02/25 04:05
History of Present Illness
History of Present Illness:
Lo is a 29-year-old female with past medical history of diabetes, hypertension noncompliant with her medications who presents complaining of bilateral lower extremity numbness and pain. History obtained from boyfriend who is at the bedside
states that she has been noncompliant with her diabetes medications and has been falling more recently.
Past History
<Aparna Dalton PA-C - Last Filed: 03/02/25 10:15>
Past History
ED Past Medical History: HTN, IDDM, Psychiatric (Anxiety, Depression) and Other (Back pain, neuropathy)
ED Past Surgical History: None
Patient has exhibited threatening behavior?: No
Social History
Tobacco: Former smoker
Alcohol: Occasional
Drug: None
Personal: Single
Living: with family
Employment: Employed
Family History
Family History: Other (Noncontributory)
Phy Exam
<Aparna Dalton PA-C - Last Filed: 03/02/25 10:15>
General Physical Exam
General Presentation: well appearing and no apparent distress
General Skin: warm and dry
General Habitus: normal
General Mental: alert
General Hydration: appears well hydrated
ENT Exam
ENT Exam: EOMI, pharynx normal, neck supple and normocephalic
Eye Exam
Eye Exam: PERRL, cornea clear and conjunctiva normal
Cardiovascular Exam
Cardiovascular Exam: regular rate/rhythm, no edema, no murmur and normal peripheral pulses
Pulmonary Exam
Pulmonary Exam: lungs clear, no respiratory distress, no rales, no crackles, no rhonchi, no stridor, no wheezing and no cough
Gastrointestinal Exam
Gastrointestinal Exam: normal bowel sounds, non tender, soft, no organomegaly, no pulsatile mass and non distended
Neurological Exam
Neurological Exam: alert, oriented x3, no motor deficits and speech normal
Musculoskeletal Exam
Musculoskeletal Exam: full ROM and no edema
Skin Exam
Skin Exam: normal color, warm/dry, no rash and no petechia
Psychiatric Exam
Psychiatric Exam: normal mood/affect
Course
<Aparna Dalton PA-C - Last Filed: 03/02/25 10:15>
Orders/Labs/Results
Orders:
Orders
03/02/25 02:43
Bedside Glucose Monitoring-ONCE As Directed
03/02/25 03:26
Alcohol Urgent
B-Hydroxybutyrate Urgent
Complete Blood Count/With Diff Urgent
Comprehensive Metabolic Panel Urgent
HCG, Serum Qualitative Screen Urgent
Lactate Level [Lactic Acid] Urgent
03/02/25 04:01
Venous Blood Gas Urgent
%Oxygen/Room Air: 95%
Comment: room air
03/02/25 04:06
0.9% Sodium Chloride 1000 ml [Nss] 1,000 ml IV BOLUS
03/02/25 05:26
Add On- LAB Urgent
Tests Added?: alcohol level
Add On- LAB Urgent
Tests Added?: serum qual HCG
03/02/25 07:06
0.9% Sodium Chloride 1000 ml [Nss] 1,000 ml IV BOLUS
03/02/25 07:20
Lactic Acid Urgent
Urinalysis Reflex To Culture Urgent
Date Specimen was Collected: 03/02/25
Time Specimen was Collected: 07:15
Urine Drug Abuse Screen Urgent
Date Specimen was Collected: 03/02/25
Time Specimen was Collected: 07:15
Urine Microscopic Reflex Cult Urgent
Urine Culture Urgent
DANIELLE Source: U
Specimen Description:
Date Specimen was Collected: 03/02/25
Time Specimen was Collected: 07:15
03/02/25 07:54
Acetaminophen 1000MG/100Ml [Ofirmev] 1,000 mg in 100 ml IV ONCE
Acetaminophen IV Indication:: ED Narcotic Naive Pt-ONCE
Ketorolac [Toradol] 15 mg IV NOW STA
03/02/25 09:02
Gabapentin [Neurontin] 600 mg PO NOW STA
Abnormal Lab Results
03/02/25 03/02/25 03/02/25
02:44 03:26 04:01
RBC 4.17 L 10^6/uL
(4.20-5.40)
MCH 33.8 H pg
(27.0-31.0)
MPV 11.8 H fL
(7.4-10.4)
VBG pO2 98 H mmHg
(30-50)
Potassium 3.2 L mmol/L
(3.5-5.1)
Carbon Dioxide 20 L mmol/L
(22-30)
BUN 5 L mg/dl
(7-17)
Creatinine 0.4 L mg/dL
(0.6-1.0)
Lactic Acid 3.2 H mmol/L
(0.7-2.0)
AST 225 H U/L
(14-36)
ALT 98 H U/L
(0-35)
Alkaline Phosphatase 128 H U/L
(38-126)
Total Protein 8.9 H g/dl
(6.3-8.2)
Albumin 5.2 H g/dl
(3.5-5.0)
Urine RBC
Urine Bacteria (Reflex)
Urine Albumin (Reflex)
B-Hydroxybutyrate 0.64 H mmol/L
(0.02-0.27)
POC Glucose 107 H mg/dl
(70-99)
03/02/25
07:20
RBC
MCH
MPV
VBG pO2
Potassium
Carbon Dioxide
BUN
Creatinine
Lactic Acid
AST
ALT
Alkaline Phosphatase
Total Protein
Albumin
Urine RBC 3-6 A /HPF
(0-2)
Urine Bacteria (Reflex) Moderate A
(Negative)
Urine Albumin (Reflex) 2+ A
(Neg - Trace)
B-Hydroxybutyrate
POC Glucose
03/02/25 03:26
03/02/25 03:26
Vital Signs
Initial and Last Documented VS:
Initial Vital Signs
Temp Pulse Resp BP Pulse Ox
97.2 F 112 16 198/132 92
03/02/25 02:38 03/02/25 02:38 03/02/25 02:38 03/02/25 02:38 03/02/25 02:38
Last Documented Vital Signs
Temp Pulse Resp BP Pulse Ox
97.2 F 115 14 147/94 96
03/02/25 02:38 03/02/25 07:17 03/02/25 07:17 03/02/25 06:00 03/02/25 06:59
<Srinath Corcoran, DO - Last Filed: 03/02/25 10:26>
Orders/Labs/Results
Orders:
Orders
03/02/25 02:43
Bedside Glucose Monitoring-ONCE As Directed
03/02/25 03:26
Alcohol Urgent
B-Hydroxybutyrate Urgent
Complete Blood Count/With Diff Urgent
Comprehensive Metabolic Panel Urgent
HCG, Serum Qualitative Screen Urgent
Lactate Level [Lactic Acid] Urgent
03/02/25 04:01
Venous Blood Gas Urgent
%Oxygen/Room Air: 95%
Comment: room air
03/02/25 04:06
0.9% Sodium Chloride 1000 ml [Nss] 1,000 ml IV BOLUS
03/02/25 05:26
Add On- LAB Urgent
Tests Added?: alcohol level
Add On- LAB Urgent
Tests Added?: serum qual HCG
03/02/25 07:06
0.9% Sodium Chloride 1000 ml [Nss] 1,000 ml IV BOLUS
03/02/25 07:20
Lactic Acid Urgent
Urinalysis Reflex To Culture Urgent
Date Specimen was Collected: 03/02/25
Time Specimen was Collected: 07:15
Urine Drug Abuse Screen Urgent
Date Specimen was Collected: 03/02/25
Time Specimen was Collected: 07:15
Urine Microscopic Reflex Cult Urgent
Urine Culture Urgent
DANIELLE Source: U
Specimen Description:
Date Specimen was Collected: 03/02/25
Time Specimen was Collected: 07:15
03/02/25 07:54
Acetaminophen 1000MG/100Ml [Ofirmev] 1,000 mg in 100 ml IV ONCE
Acetaminophen IV Indication:: ED Narcotic Naive Pt-ONCE
Ketorolac [Toradol] 15 mg IV NOW STA
03/02/25 09:02
Gabapentin [Neurontin] 600 mg PO NOW STA
Abnormal Lab Results
03/02/25 03/02/25 03/02/25
02:44 03:26 04:01
RBC 4.17 L 10^6/uL
(4.20-5.40)
MCH 33.8 H pg
(27.0-31.0)
MPV 11.8 H fL
(7.4-10.4)
VBG pO2 98 H mmHg
(30-50)
Potassium 3.2 L mmol/L
(3.5-5.1)
Carbon Dioxide 20 L mmol/L
(22-30)
BUN 5 L mg/dl
(7-17)
Creatinine 0.4 L mg/dL
(0.6-1.0)
Lactic Acid 3.2 H mmol/L
(0.7-2.0)
AST 225 H U/L
(14-36)
ALT 98 H U/L
(0-35)
Alkaline Phosphatase 128 H U/L
(38-126)
Total Protein 8.9 H g/dl
(6.3-8.2)
Albumin 5.2 H g/dl
(3.5-5.0)
Urine RBC
Urine Bacteria (Reflex)
Urine Albumin (Reflex)
B-Hydroxybutyrate 0.64 H mmol/L
(0.02-0.27)
POC Glucose 107 H mg/dl
(70-99)
03/02/25
07:20
RBC
MCH
MPV
VBG pO2
Potassium
Carbon Dioxide
BUN
Creatinine
Lactic Acid
AST
ALT
Alkaline Phosphatase
Total Protein
Albumin
Urine RBC 3-6 A /HPF
(0-2)
Urine Bacteria (Reflex) Moderate A
(Negative)
Urine Albumin (Reflex) 2+ A
(Neg - Trace)
B-Hydroxybutyrate
POC Glucose
03/02/25 03:26
03/02/25 03:26
Vital Signs
Initial and Last Documented VS:
Initial Vital Signs
Temp Pulse Resp BP Pulse Ox
97.2 F 112 16 198/132 92
03/02/25 02:38 03/02/25 02:38 03/02/25 02:38 03/02/25 02:38 03/02/25 02:38
Last Documented Vital Signs
Temp Pulse Resp BP Pulse Ox
97.2 F 115 14 147/94 96
03/02/25 02:38 03/02/25 07:17 03/02/25 07:17 03/02/25 06:00 03/02/25 06:59
<Aparna Dalton PA-C - Last Filed: 03/02/25 10:15>
MDM/Problems Addressed
Differential Diagnosis Includes:
CBC obtained and reviewed hemoglobin stable no evidence of infection. CMP with mild hypokalemia, euglycemic and elevated LFTs consistent with follow-up liver disease. Alcohol level elevated at 337 despite patient reporting she stopped drinking
sometime last evening. Beta-hydroxybutyrate also elevated at 0.64. Patient given 2 L bolus with improvement in her lactic acidosis which was recently 3.2. UA without evidence evidence of infection. Patient was given Tylenol and Toradol for her
lower extremity pain with some improvement also given a dose of gabapentin. On reevaluation patient is requesting to leave. She is upset that people have mentioned resources for alcohol as she does not feel she has a problem despite drinking
daily. She would like to resume her diabetes medication as currently taking metformin. I encouraged her to follow-up with her primary care doctor but she says that he cannot see her for weeks. Significant other is very concerned about her
diabetes. After long discussion I have agreed to send a 2-week prescription of metformin to her pharmacy. I instructed her to follow-up as soon as possible as future medications will not be able to be refilled in the emergency room. Patient was
informed of this. Return precautions discussed.
<Aparna Dalton PA-C - Last Filed: 03/02/25 10:15>
*Pulse Oximetry
SaO2: 96
Patient hypoxic: no
*Critical Care Note
Total Time (30-74mins, 75-104mins- exclusive of procedures): Not Applicable
ED Attending Note
<Aparna Dalton PA-C - Last Filed: 03/02/25 10:15>
-
Portions of this chart may have been created with voice recognition software.� Occasional wrong word or��sound alike� substitutions may have occurred due to the inherent limitations of voice recognition software.
<Srinath Corcoran DO - Last Filed: 03/02/25 10:26>
ED Attending Note
Patient seen and examined by attending physician: Yes
ED Attending Note:
I reviewed and agree with history treatment plan by Aparna Dalton PA-C. My exam revealed
Physical Exam
General: Intoxicated, no acute distress
Neck: supple. no meningeal signs. normal posterior pharynx
Heart: s1/s2 regular rate and rhythm, no murmur. equal radial
pulses.
HEENT: Pupils equal round reactive to light, EOMI
Lungs: no acute respiratory distress. clear bilaterally
Abdomen: normal bowel sounds. not tender. no CVAT
Neuro: alert and oriented. no focal neurological deficits cranial nerves II through XII intact
Skin: no rash
Psychiatric: well kept. interactive and cooperative
Extremities: no edema. no calf tenderness. negative homans. good distal pulses, feet tender to palpation
29-year-old female with neuropathy, possibly due to diabetes. Patient also with alcohol intoxication and alcohol. She declines assistance for alcohol abuse. She was made aware that the alcohol use will worsen her neuropathic symptoms. Stable for
discharge. Patient to continue Neurontin. Follow-up with neurology.
Discharge Plan
Departure
Patient Disposition: Home (Routine Discharge)
Date of Disposition: 12/22/25
Time of Disposition: 09:55
Patient with high blood pressure during this ER visit?: No
Discharge Problem:
Diabetic neuropathy, Bilateral leg paresthesia, Alcohol intoxication
Instructions: Type 2 diabetes (DC), Alcohol use disorder - ED (DC)
Prescriptions:
New
metformin 500 mg tablet
500 mg PO BID 14 Days Qty: 28 0RF
No Action
gabapentin 400 mg Capsule
400 mg PO TID
amlodipine 2.5 mg Tablet
2.5 mg PO DAILY
Patient Comments:
no pharmacy fills
desvenlafaxine succinate [Pristiq] 50 mg Tablet Extended Release 24 Hr
50 mg PO DAILY
quetiapine [Seroquel] 100 mg Tablet
500 mg PO HS
metformin 500 mg Tablet
500 mg PO BID@0800,1700 Qty: 60 0RF
Rx Instructions:
TAKE TWICE A DAY WITH MEALS
(DME) Contour Next Test Strips Strip
Qty: 200 0RF
Rx Instructions:
TESTING BLOOD SUGAR 4 TIMES A DAY
insulin aspart U-100 [Novolog FlexPen U-100 Insulin] 100 unit/mL (3 mL) Insulin Pen
8 unit SC AC Qty: 5 0RF
Rx Instructions:
TAKE 8 UNITS BEFORE EACH MEAL
insulin glargine [Lantus Solostar U-100 Insulin] 100 unit/mL (3 mL) Insulin Pen
18 unit SC HS Qty: 5 0RF
Rx Instructions:
TAKE 18 UNITS AT BEDTIME
(DME) pen needle, diabetic [BD Ultra-Fine Marla Pen Needle] 32 gauge x 5' Needle
Qty: 200 0RF
Rx Instructions:
PT TAKING INSULIN 4 TIMES A DAY
(DME) lancets [Microlet Lancet] Misc
Qty: 200 0RF
Rx Instructions:
TEST BLOOD SUGAR 4 TIMES A DAY
insulin aspart U-100 100 unit/mL (3 mL) Insulin Pen
8 unit SC TID Qty: 5 0RF
Rx Instructions:
TAKE 8 UNITS BEFORE EACH MEAL
amoxicillin-pot clavulanate 875-125 mg tablet
1 tab PO BID Qty: 19 0RF
albuterol sulfate 90 mcg/actuation HFA aerosol inhaler
2 puff inhalation QID PRN (Reason: shortness of breath or wheezing) Qty: 6.7 0RF
prednisone 20 mg tablet
40 mg PO DAILY Qty: 6 0RF
Referrals:
Luke Griffin DO [Family Provider, Family Practice]
Activity Restrictions/Additional Instructions:
Follow-up neurologist primary care physician regarding diabetes and neuropathy. A short prescription of your metformin has been sent to your pharmacy at your request. Please follow-up with your primary care doctor regarding your medications as the
ER will be unable to refill any additional medications. You were offered resources for alcohol use but have declined.
Interventions
Interventions:
*General Assessment Last Done: 03/02/25 03:29
*Neglect/Abuse Screening Last Done: 03/02/25 02:38
*ED COVID-19 Vaccine History Last Done: 03/02/25 03:29
*ED Influenza Vaccine History Last Done: 03/02/25 03:29
[facility] Fall Risk Assessment Tool Last Done: 03/02/25 03:29
*Risk Screen - Suicide (C-SSRS) Last Done: 03/02/25 02:38
ED- Neurological Assessment Last Done: 03/02/25 03:33
Discharge Date and Time
Print Language: BENGAL[place]
[2025-03-02 07:57] LABS: Urine Character Clear (Clear)
[2025-03-02 08:16] LABS: Urine Squamous Cell >30 /LPF (Few)
[2025-03-02] MEDS: TORADOL 15 MG IV (08:23)
[2025-03-02] MEDS: OFIRMEV 100 IV (08:23)
[2025-03-02] MEDS: NEURONTIN 600 MG PO (09:11)
== END 2025-03-02 10:52 | disposition home or self-care (01) ==
LOC: EMR 02:37
PROVIDERS: Emergency Medicine; EMERGENCY PHYSICIAN Emergency Medicine; FAMILY PHYSICIAN Family Medicine
DX: E10.40 Type 1 diabetes mellitus with diabetic neuropathy, unspecified (principal); F10.129 Alcohol abuse with intoxication, unspecified; I10 Essential (primary) hypertension; F41.9 Anxiety disorder, unspecified; F32.A Depression, unspecified; Z79.4 Long term (current) use of insulin; Z79.84 Long term (current) use of oral hypoglycemic drugs; T38.3X6A Underdosing of insulin and oral hypoglycemic [antidiabetic] drugs, initial encounter; Z91.148 Patient's other noncompliance with medication regimen for other reason; Z87.891 Personal history of nicotine dependence; Y90.8 Blood alcohol level of 240 mg/100 ml or more
CPT/HCPCS: 99284; 96374; 96375; 96361 ×2; 80053; 80306; 81003; 81015; 82010; 82077; 82805; 82962; 83605; 84703; 85025; 87086